=== PATIENT | female | born 1980 | race Caucasian/White ===

== ENCOUNTER 2019-01-25 10:21 | Outpatient (REF) | payer OTHER, SELFPAY | END 2019-01-25 10:41 | LOC: LBN 10:21 | PROVIDERS: PCP Internal Medicine; Visit Provider Nurse Practitioner | DX: R39.15 Urgency of urination (principal); R35.0 Frequency of micturition | CPT/HCPCS: 87086 ==

== ENCOUNTER 2019-07-21 22:19 | Observation (INO) | payer OTHER, SELFPAY ==
--- NOTE | 2019-07-21 00:12 | DI.CT_ITS ---
EXAM: CT ABDOMEN PELVIS W CLINICAL HISTORY: lower abdominal pain/RLQ tenderness COMPARISON: No exams were available for comparison FINDINGS: CT examination of the abdomen and pelvis was performed with a bolus infusion of 100 cc Omnipaque 350. Images obtained through the lung bases are unremarkable. There is a 14 millimeter in diameter, low -attenuation, mass-like lesion adjacent to the falciform ligament of the liver, probable focal fat. Ultrasound correlation and follow-up recommended to exclude mass. Tiny low-attenuation lesion also s een anteriorly at the dome of the liver, too small to characterize. Spleen is unremarkable. No bili shannan dilatation. Cholelithiasis noted without gallbladder wall thickening. Pancreas appears normal. Adrenals and kidneys are unremarkable except for multiple bilateral renal cysts, no evidence of urina ry tract calcification or obstruction. Hiatal hernia noted. No significant abdominal wall hernia. No abdominal or pelvic adenopathy. Abdominal aorta and major branches appear intact. There is markedly dilated appendix with thickened wall and multiple appendicoliths, periappendiceal f at edema and mild free fluid noted in the pelvis, the findings are highly suggestive of acute appendi citis. No evidence of perforation or abscess formation. Mild small bowel wall thickening noted in t he pelvis, nonspecific, presumably related to appendiceal inflammation. No evidence of bowel obstruc tion. Supplier Quality Manager structures unremarkable with presumed follicular appearance of the ovaries. IMPRESSION: 1. Acute appendicitis , no evidence of abscess or perforation. 2. Cholelithiasis. 3. Hiatal hernia.
[2019-07-21 22:23] VITALS: BP 117/72; PULSE 108; TEMP 36.9; O2SAT 100
--- NOTE | 2019-07-21 22:53 | ED.GENADUL_ITS ---
Discharge Plan Disposition Patient Disposition: [facility] INPATIENT Condition: Fair Discharge Details Chief Complaint: Abd Prob Clinical Impression: Acute appendicitis Primary Care Provider: Adelina Vasquez ED Provider: Mando Denis Home Meds and New Rx's Prescriptions: No Action Allergy Relief Tablets PO PRN RF: 0 albuterol sulfate [Proventil HFA] 90 mcg/actuation HFA aerosol inhaler 1 - 2 puff Inhalation Q4H PRN Qty: 1 RF: 2 multivitamin [Daily Multi-Vitamin] 1 EACH tablet 1 ea PO DAILY RF: 0 cholecalciferol (vitamin D3) 5,000 UNIT tablet 5,000 unit PO DAILY PRNRF: 0 Medical Decision Making Patient presenting with lower abdominal pain and vomiting that has been worsening over the course of 24 to 36 hours. She is mildly tachycardic but does not look toxic. She has significant tenderness with involuntary guarding in the right lower quadrant. IV established fluids, antiemetic, laboratory studies, CT scan ordered. Urine test is negative. Urinalysis with ketones, small blood, small bilirubin. No evidence of infection on micro. White count elevated to 14.3. Hemoglobin and platelets normal. Chemistries unremarkable. CT scan shows acute appendicitis with appendicolith at the base. No perforation or abscess present. Patient made n.p.o. Fluids continuing. Morphine for pain. Case discussed with surgeon, Dr. Samuels. Timoteo and Sincere ordered. Patient admitted for appendectomy in the morning. Patient and family aware of diagnosis and pending admission. Lab Data Lab results reviewed: Yes I reviewed the patient's lab results. HPI General Mode of arrival: ambulatory . Date/Time Provider Initiated Documentation: 07/21/19 22:19 . Limitations to Documentation: no limitations . Information obtained by: patient and RN notes reviewed . HPI Narrative: Patient presents to ED with complaint of worsening low abdominal pain with associated vomiting. Patient reports pain started yesterday while at work. It became progressively worse throughout the day. She began vomiting when she came home after work. She has continued to have worsening pain throughout the night and today. No fever that she is aware of. No diarrhea. Continues to occasionally be able to eat and drink something. No urinary symptoms. No URI symptoms, cough, shortness of breath. Related Data Home Medications Medication Instructions Recorded Confirmed multivitamin [Multi-Vitamin Daily] 1 ea PO DAILY tab 03/21/15 07/22/19 cholecalciferol (vitamin D3) 5,000 unit PO DAILY PRN 07/01/16 07/22/19 Allergy Relief Tablets PO PRN 03/23/18 01/25/19 albuterol sulfate 90 mcg/actuation 1 - 2 puff INHALATION Q4H PRN #1 03/23/18 07/22/19 aerosol inhaler inhaler Previous Rx's Medication Instructions Recorded albuterol sulfate 90 mcg/actuation 1 - 2 puff INHALATION Q4H PRN #1 03/23/18 aerosol inhaler inhaler Allergies Allergy/AdvReac Type Severity Reaction Status Date / Time amoxicillin trihydrate AdvReac Intermediate abdominal Verified 07/21/19 22:29 [From Augmentin] cramps ibuprofen AdvReac Intermediate intensse Verified 07/21/19 22:29 Intestinal Pain potassium clavulanate AdvReac Intermediate abdominal Verified 07/21/19 22:29 [From Augmentin] cramps seasonal Allergy Intermediate cold type Uncoded 07/21/19 22:29 s/s, stuffy head, itchy eyes General Stated Complaint: Abd Prob NOMAN: 3 Review of Systems Narrative: 02/14 Review of Systems completed and is negative except as stated above in HPI (Systems reviewed: Const, Eyes, ENT, Resp, CV, GI, , MSK, Skin, Neuro) PFSH Medical History Asthma (Chronic) Environmental allergies (Chronic) Surgical History S/P oophorectomy (Chronic) [place] teeth extraction (Inactive) Social History Smoking/Tobacco Use Status: Never Alcohol Intake: never Substance use type: does not use current occupation: Sales What type of physical activity do you participate in: walking and other Details: exercise ball Duration: 15-30 minutes/day Frequency: 3-4 times per week Seatbelt use: always Drive intox or ride w/intox hire car driver: No Working smoke detector in home: Yes Fire extinguisher in home: Yes Carbon monox detector in home: Yes Exam Narrative Exam Narrative: Vitals: Afebrile. Mild tachycardia. Normal blood pressure and room air saturation. Const: WDWN female in NAD. HEENT: NC/AT. Normal facial exam. Eyes: Normal conjunctiva and sclera. Neck: Supple. Trachea midline. Lungs: Normal respiratory effort. Lungs are clear. Cor: RRR without murmur/gallop. Good radial pulses. GI: Soft and non-distended. Tender with involuntary guarding in the RLQ. Pelvic: deferred. Neuro: A+O x 3. Normal speech, mentation, gait. Cranial nerves II - XII grossly intact. No gross motor or sensory deficit. Ext: No C/C/E. Skin: Warm and dry without rash. Course Vital Signs Vital signs: Vital Signs Temperature 98.5 F 07/21/19 22:23 Pulse 108 H 07/21/19 22:23 Blood Pressure 117/72 07/21/19 22:23 Pulse Oximetry 100 07/21/19 22:23 Temperature 98.5 F 07/21/19 22:23 Temperature Source Skin 07/21/19 22:23 Pulse 108 H 07/21/19 22:23 Respiratory Effort Non-Labored 07/21/19 22:29 Blood Pressure 117/72 07/21/19 22:23 Blood Pressure Position Supine 07/21/19 22:23 Pulse Oximetry 100 07/21/19 22:23 Oxygen Delivery Method Room Air 07/21/19 22:23 Oxygen Flow Rate 0 07/21/19 22:23 Pain Level 10 07/21/19 22:23
[2019-07-21] MEDS: Ondansetron 4 MG/2 ML VIAL IVP (23:42)
[2019-07-21] MEDS: Lactated Ringers 1,000 ML 1000 ML IV (23:42)
[2019-07-22] VITALS (16 sets, daily range): BP systolic 99–131; BP diastolic 55–82; PULSE 84–135; RESP 9–19; TEMP 36.3–39.4; O2SAT 95–100
[2019-07-22 00:01] LABS: Abs Immature Grans 0.05 k/cumm (0.0-0.09); Absolute Basophil Count 0.01 k/cumm (0.0-0.2); Absolute Monocyte Count 0.66 k/cumm (0.11-0.7); Absolute Neutrophil Count 12.99 k/cumm (1.2-6.7); Basophils % 0.1; HCT 43.1 % (36.0-46.0); HGB 14.4 g/dL (12.0-15.5); Immature Grans % 0.3 %; Lymphocytes % 4.2; Mean Corp. HGB Concentration 33.4 g/dL (32.0-36.0); Mean Corpuscular Volume 83.7 fL (80-95); Monocytes % 4.6; Neutrophils % 90.8; Platelet Count 354 x1000/uL (130-400); RBC 5.15 m/cumm (4.00-5.20); RBC Distribution Width 14.3 % (11.7-14.6); White Blood Cell Count 14.31 k/cumm (4.4-10.8)
[2019-07-22] MEDS: Normal Saline Flush 10 ML SYR IVP ×6 (00:07→20:57)
[2019-07-22] MEDS: Omnipaque 350 MG/ML 100 ML BTL IJ (00:08)
[2019-07-22] MEDS: Normal Saline - Diluent 50 ML VIAL IV (00:12)
[2019-07-22 00:15] LABS: ALT 42 U/L (14-59); AST 29 U/L (15-37); Albumin 3.7 g/dL (3.4-5.0); Alkaline Phosphatase 81 U/L (46-116); Anion Gap 11.4 mmol/L (3-11); BUN 7 mg/dL (7-18); Bilirubin, Total 1.4 mg/dL (0.2-1.0); CO2 25.6 mmol/L (21.0-32.0); CREATININE 1.02 mg/dL (0.55-1.02); Chloride 98 mmol/L (98-107); Glucose 163 mg/dL (74-106); Lipase 57 U/L (73-393); Potassium 3.8 mmol/L (3.5-5.1); Sodium 135 mmol/L (136-145); Total Protein 8.3 g/dL (6.4-8.2)
[2019-07-22 00:16] LABS: Bilirubin Small (Negative); Blood Small (Negative); Clarity Clear (Clear); Glucose Negative (Negative); Ketones 40 mg/dL (Negative); Leukocyte Esterase Negative (Negative); Nitrite Negative (Negative); Specific Gravity 1.025 (1.005-1.025); Urobilinogen 0.2 EU/dL (Up TO 0.2)
[2019-07-22 00:17] LABS: Bacteria Rare HPF (Negative); C & S Indicated? No; Casts Negative LPF (Negative); Crystals Negative HPF (Negative); Epithelial Cells Rare HPF (Negative); Mucus Negative (Negative); WBC 0-2 HPF (0-5)
--- NOTE | 2019-07-22 00:31 | DI.VRAD_ITS ---
PROCEDURE INFORMATION: Exam: CT Abdomen And Pelvis With Contrast Exam date and time: 07/21/2019 10:53 PM Age: 38 years old Clinical indication: Right lower quadrant (rlq) abd pain; Prior surgery; date: 6+ months; Oophorectomy TECHNIQUE: Imaging protocol: Computed tomography of the abdomen and pelvis with intravenous contrast. Radiation optimization: All CT scans at this facility use at least one of these dose optimization techniques: automated exposure control; mA and/or kV adjustment per patient size (includes targeted exams where dose is matched to clinical indication); or iterative reconstruction. Contrast material: EVFD325; Contrast volume: 100 ml; Contrast route: IV RAC 20G; COMPARISON: No relevant prior studies available. FINDINGS: Lungs: No acute infiltrate in either lung base. Mediastinum: Small hiatal hernia. Liver: Normal. No mass. Gallbladder and bile ducts: Cholelithiasis, otherwise normal gallbladder. No biliary tract dilatation. Pancreas: Normal. No ductal dilation. Spleen: Normal. No splenomegaly. Adrenals: Normal. No mass. Kidneys and ureters: Bilateral renal cortical cysts. No hydronephrosis. No perinephric fluid collections. Stomach and bowel: Unremarkable. No obstruction. No mucosal thickening. Appendix: 13-14 mm caliber, dilated, fluid-filled appendix with multiple internal appendicoliths, including 7 mm appendicolith in the appendiceal base. Small amount of free fluid in the pelvis. No associated abscess or perforation. Intraperitoneal space: Small amount of free fluid in the pelvis. Vasculature: Unremarkable. No abdominal aortic aneurysm. Lymph nodes: Unremarkable. No enlarged lymph nodes. Bladder: Unremarkable as visualized. Reproductive: 17 mm left ovarian simple cyst. Normal uterus. History of prior right oophorectomy. Bones/joints: Unremarkable. No acute fracture. Soft tissues: Unremarkable. IMPRESSION: 1. ACUTE APPENDICITIS: 13-14 mm caliber, dilated, fluid-filled appendix with multiple internal appendicoliths, including 7 mm appendicolith in the appendiceal base. Small amount of free fluid in the pelvis. No associated abscess or perforation. 2. Cholelithiasis, otherwise normal gallbladder. 3. 17 mm left ovarian simple cyst. 4. Small hiatal hernia. 5. THIS REPORT CONTAINS FINDINGS THAT MAY BE CRITICAL TO PATIENT CARE. The findings were verbally communicated via telephone conference with MIRA CARUSO at 12:23 AM EDT on 07/22/2019. The findings were acknowledged and understood. Dictated and Authenticated by: Wing Herrera MD. Ordering:JOHN Gilmore MD
[2019-07-22] MEDS: CIPROFLOXACIN 400 MG/200 ML BAG 200 MG IVPB (01:02)
[2019-07-22] MEDS: Lactated Ringers 1,000 ML 125 ML IV ×4 (03:37→18:33)
[2019-07-22] MEDS: Acetaminophen 325 MG TAB 650 MG PO ×2 (04:03→20:55)
[2019-07-22] MEDS: Ketorolac 30 MG/ML VIAL IVP ×2 (04:04→20:57)
[2019-07-22] MEDS: metroNIDAZOLE 500 MG/100 ML BAG 100 MG IVPB ×2 (07:39→16:23)
--- NOTE | 2019-07-22 09:47 | W.PM.HP.N ---
Date of service: 07/22/19 Time of Service: 09:54 Assessment and Plan Assessment and plan (1) Acute appendicitis: Status: Acute Assessment and plan: I advised appendectomy. We are treating every patient as a potential carrier of coronavirus. To avoid manipulating the airway, she is advised to have the procedure done as an open appendectomy under spinal/sedation. This will also minimize the risk of exacerbating her asthma. The surgery was described including the risks of infection, bleeding, injury to bowel, abscess, hernia. Postop instructions were also discussed with the patient in anticipation of discharge today. History of Present Illness Narrative: This patient presented to the ER last night with abdominal pain, N/V for about 24 hours. She also notes some constipation. CT reviewed and shows acute appendicitis with a fecalith present. No obvious perforation. She has no cough or SOB. Rarely uses her inhaler. No recent travel. Works in an office. Review of Systems Constitutional Constitutional: Denies fatigue and Denies headache(s) Eyes Eyes: Denies change in vision ENT Ears, Nose, Mouth, and Throat: Denies headache(s) and Denies neck mass Cardiovascular Cardiovascular: Denies chest pain, Denies edema, Denies palpitations and Denies dyspnea Respiratory Respiratory: Denies cough, Denies dyspnea and Denies wheezing Gastrointestinal Gastrointestinal: Denies hematochezia and Denies change in bowel habits Genitourinary Genitourinary: Denies abnormal vaginal bleeding and Denies dysuria Musculoskeletal Musculoskeletal: Denies joint swelling Integumentary/Breasts Skin/Breast: Denies new lesions and Denies rash Neurologic Neurologic: Denies confusion, Denies headache(s) and Denies localized weakness Psychiatric Psychiatric: Reports system reviewed and no additional complaints, except as documented and Denies confusion Endocrine Endocrine: Denies fatigue and Denies palpitations Hematologic/Lymphatic Hematologic/Lymphatic: Denies easy bleeding and Denies lymphadenopathy Allergic/Immunologic Allergic/Immunologic: Denies wheezing [facility] Medical History Asthma (Chronic) Environmental allergies (Chronic) Surgical History S/P oophorectomy (Chronic) with bilateral salpingectomy [place] teeth extraction (Inactive) Family History Mother No problems noted. Father No problems noted. Grandfather Cancer Kidney CA Grandmother Cancer Not sure type ?stomach Grandmother Ovarian cancer Or endometrial CA? Diabetes maternal grandmother Essential hypertension maternal grandmother Heart disease Myocardial infarction Great Grandmother , Heart issues Cancer Breast CA Other Personal history of malignant neoplasm Social History Smoking/Tobacco Use Status: Never Alcohol Intake: never Substance use type: does not use current occupation: Sales What type of physical activity do you participate in: walking and other Details: exercise ball Duration: 15-30 minutes/day Frequency: 3-4 times per week Seatbelt use: always Drive intox or ride w/intox distribution driver: No Working smoke detector in home: Yes Fire extinguisher in home: Yes Carbon monox detector in home: Yes Meds Home Medications and Allergies Home Medications Medication Instructions Recorded Confirmed Type multivitamin [Multi-Vitamin Daily] 1 ea PO DAILY tab 03/21/15 07/22/19 History cholecalciferol (vitamin D3) 5,000 unit PO DAILY PRN 07/01/16 07/22/19 History Allergy Relief Tablets PO PRN 03/23/18 01/25/19 History albuterol sulfate 90 mcg/actuation 1 - 2 puff INHALATION Q4H PRN #1 03/23/18 07/22/19 Rx aerosol inhaler inhaler Allergies Allergy/AdvReac Type Severity Reaction Status Date / Time amoxicillin trihydrate AdvReac Intermediate abdominal Verified 07/21/19 22:29 [From Augmentin] cramps ibuprofen AdvReac Intermediate intensse Verified 07/21/19 22:29 Intestinal Pain potassium clavulanate AdvReac Intermediate abdominal Verified 07/21/19 22:29 [From Augmentin] cramps seasonal Allergy Intermediate cold type Uncoded 07/21/19 22:29 s/s, stuffy head, itchy eyes Exam Const General: healthy appearing Nutritional Appearance: well nourished Orientation: oriented x3 HENMT Head: normal to inspection Eyes Sclera: sclerae normal Pupils: PERRL Neck Neck: no lymphadenopathy Resp Effort & Inspection: normal respiratory effort Auscultation: clear to auscultation bilaterally and no wheezes Cardio Rate: regular rate Rhythm: regular rhythm GI Inspection: non-distended Palpation: soft, no hepatosplenomegaly, no hernias and tender in the RLQ Skin General skin exam: no rashes or lesions noted Neuro General: patient alert Cognition: normal cognition Extrem General: normal to inspection Psych Affect: normal affect Attitude: cooperative Results Labs Result diagrams: 07/21/19 23:42 07/21/19 23:42 Labs: Laboratory Results - last 24 hr 07/21/19 07/21/19 07/22/19 23:42 23:42 00:00 WBC 14.31 H RBC 5.15 Hgb 14.4 Hct 43.1 MCV 83.7 MCH 28.0 MCHC 33.4 RDW 14.3 Plt Count 354 MPV 9.0 Immature Gran % 0.3 Neutrophils % 90.8 Lymphocytes % 4.2 Monocytes % 4.6 Eosinophils % 0.0 Basophils % 0.1 Absolute Neutrophils 12.99 H Absolute Lymphocytes 0.60 L Absolute Monocytes 0.66 Absolute Eosinophils 0.00 Absolute Basophils 0.01 Sodium 135 L Potassium 3.8 Chloride 98 Carbon Dioxide 25.6 Anion Gap 11.4 H BUN 7 Creatinine 1.02 Estimated GFR/1.73 m2 >= 60.00 Glucose 163 H Calcium 9.0 Total Bilirubin 1.4 H AST 29 ALT 42 Alkaline Phosphatase 81 Total Protein 8.3 H Albumin 3.7 Lipase 57 Urine Color Yellow Urine Clarity Clear Urine pH 6.0 Ur Specific [place] 1.025 Urine Protein 100 H Urine Ketones 40 H Urine Blood Small H Urine Nitrite Negative Urine Bilirubin Small H Urine Urobilinogen 0.2 Ur Leukocyte Esterase Negative Urine RBC 3-5 H Urine WBC 0-2 Ur Epithelial Cells Rare Urine Crystals Negative Urine Bacteria Rare Urine Casts Negative Urine Mucus Negative Ur Culture Indicated? No Urine Glucose Negative Last Vital Signs Temp 100.2 F H 07/22/19 07:49 Pulse 115 H 07/22/19 07:49 Resp 16 07/22/19 07:49 BP 103/59 L 07/22/19 07:49 Pulse Ox 96 07/22/19 07:49
--- NOTE | 2019-07-22 09:58 | W.PM.DS.N ---
DS: Diagnosis Discharge Diagnosis (1) Acute appendicitis: Status: Acute Discharge Plan Disposition Patient Disposition: HOME Condition: Improving Discharge Details Chief Complaint: Abd Prob Clinical Impression: Acute appendicitis Reason For Visit: ACUTE APPENDICITIS Admit Date/Time: 07/22/19 00:48 Admit Provider: Julia Samuels Attending Provider: Julia Samuels Primary Care Provider: Adelina Vasquez ED Provider: Mando Denis Home Meds and New Rx's Prescriptions: Continued Allergy Relief Tablets PO PRN RF: 0 albuterol sulfate [Proventil HFA] 90 mcg/actuation HFA aerosol inhaler 1 - 2 puff Inhalation Q4H PRN Qty: 1 RF: 2 multivitamin [Daily Multi-Vitamin] 1 EACH tablet 1 ea PO DAILY RF: 0 cholecalciferol (vitamin D3) 5,000 UNIT tablet 5,000 unit PO DAILY PRNRF: 0 Discharge Instructions Additional Instructions: The top bandage can be removed tomorrow or the next day. The steri strips underneath the bandage will usually stick for about a week. When the edges start to curl up, they can be removed. It is okay to shower tomorrow, the water can run over the steri strips Do not swim or soak in a tub for two weeks Call for any concerns including fever, increased pain, vomiting, incision redness or drainage. Do not lift more than 15 pounds for four weeks. Walking and stairs are fine. Do not drive if on narcotic pain meds or if limited by pain. May use Tylenol for pain control once the Percocet is not being taken. Ice is also an option. The maximum dose for Tylenol is 4000 mg/day. If concerned about constipation, you may use a stool softener or milk of magnesia. Referrals: Julia Samuels MD [ [facility] STAFF PHYSICIAN] - (Return for a postop visit as needed. Please call with any concerns or if you need a note for work.) Activity:: Do not lift more than 15 pounds Equipment/Supplies:: No Equipment Needed Diet:: As Tolerated DS: Data Vitals/I&O Vitals and I&O: Vital Signs Temperature 100.2 F H 07/22/19 07:49 Temperature Source Temporal Artery Scan 07/22/19 07:49 Pulse 115 H 07/22/19 07:49 Pulse Rhythm Regular 07/22/19 01:42 Respiratory Rate 16 07/22/19 07:49 Respiratory Effort Non-Labored 07/22/19 01:42 Respiratory Depth Normal 07/22/19 01:42 Respiratory Pattern Normal 07/22/19 01:42 Blood Pressure 103/59 L 07/22/19 07:49 Blood Pressure Position Supine 07/21/19 22:23 Pulse Oximetry 96 07/22/19 07:49 Oxygen Delivery Method Room Air 07/22/19 07:49 Oxygen Flow Rate 0 07/22/19 07:49 Pain Level 5 07/22/19 07:49 Intake & Output 07/21/19 07/21/19 07/22/19 11:59 23:59 11:59 Intake Total 418.75 / 418.75 Output Total 475 / 475 Balance -56.25 / -56.25 Weight 165 lb 0.009 oz 168 lb 10.458 oz Intake: IV 418.75 / 418.75 Output: Urine 475 / 475 Other: Urine Color Light Lisha [place] Urine Appearance Clear Urine Odor Normal Voiding Methods Toilet Data Completed and Pending Labs on day of discharge: Labs from last 24 hours 07/22/19 07/21/19 07/21/19 00:00 23:42 23:42 WBC 14.31 H RBC 5.15 Hgb 14.4 Hct 43.1 MCV 83.7 MCH 28.0 MCHC 33.4 RDW 14.3 Plt Count 354 MPV 9.0 Immature Gran % 0.3 Neutrophils % 90.8 Lymphocytes % 4.2 Monocytes % 4.6 Eosinophils % 0.0 Basophils % 0.1 Absolute Neutrophils 12.99 H Absolute Lymphocytes 0.60 L Absolute Monocytes 0.66 Absolute Eosinophils 0.00 Absolute Basophils 0.01 Sodium 135 L Potassium 3.8 Chloride 98 Carbon Dioxide 25.6 Anion Gap 11.4 H BUN 7 Creatinine 1.02 Estimated GFR/1.73 m2 >= 60.00 Glucose 163 H Calcium 9.0 Total Bilirubin 1.4 H AST 29 ALT 42 Alkaline Phosphatase 81 Total Protein 8.3 H Albumin 3.7 Lipase 57 Urine Color Yellow Urine Clarity Clear Urine pH 6.0 Ur Specific [place] 1.025 Urine Protein 100 H Urine Ketones 40 H Urine Blood Small H Urine Nitrite Negative Urine Bilirubin Small H Urine Urobilinogen 0.2 Ur Leukocyte Esterase Negative Urine RBC 3-5 H Urine WBC 0-2 Ur Epithelial Cells Rare Urine Crystals Negative Urine Bacteria Rare Urine Casts Negative Urine Mucus Negative Ur Culture Indicated? No Urine Glucose Negative PFSH Medical History Asthma (Chronic) Environmental allergies (Chronic) Surgical History S/P oophorectomy (Chronic) with bilateral salpingectomy [place] teeth extraction (Inactive) Family History Mother No problems noted. Father No problems noted. Grandfather Cancer Kidney CA Grandmother Cancer Not sure type ?stomach Grandmother Ovarian cancer Or endometrial CA? Diabetes maternal grandmother Essential hypertension maternal grandmother Heart disease Myocardial infarction Great Grandmother , Heart issues Cancer Breast CA Other Personal history of malignant neoplasm Social History Smoking/Tobacco Use Status: Never Alcohol Intake: never Substance use type: does not use current occupation: Sales What type of physical activity do you participate in: walking and other Details: exercise ball Duration: 15-30 minutes/day Frequency: 3-4 times per week Seatbelt use: always Drive intox or ride w/intox hyster driver: No Working smoke detector in home: Yes Fire extinguisher in home: Yes Carbon monox detector in home: Yes
[2019-07-22] MEDS: Bupivacaine 0.5% Pres-Free 30 ML VIAL (10:57)
[2019-07-22] MEDS: CIPROFLOXACIN 400 MG/200 ML BAG 200 MG (11:24)
--- NOTE | 2019-07-22 11:42 | APP_PTH ---
PATIENT: Hilda Bliss LOC: U#:[id number] AGE/SX: 38/F ROOM: RE07/22/[address]: Julia Samuels MD : 1980 BED: A DIS: 07/24/2019 SPEC #: [id number] RECD: 07/22/19 12:46 STATUS: ALMAZ REQ #: [id number] SHIREEN: 07/22/19 11:[address]: Julia Samuels DEPT: Surgical Specimen RECD BY: Ana Maria Corbett ENTERED: 07/22/19 12:49 SP TYPE: Appendix OTHR DR: Adelina Vasquez APRN Tissues: 1 - APPENDIX NOT INCIDENTAL Procedures: GROSS AND MICRO LEVEL 3 Comments: [id number]
--- NOTE | 2019-07-22 12:24 | W.PM.PROGNOT ---
Date of Service Date of service: 07/22/19 Time of Service: 12:25 Assessment and Plan Assessment and plan (1) Perforated appendicitis: Status: Acute Assessment and plan: Patient found to have perforated appendicitis. Will keep in hospital on IV antibiotics for another day and re-evaluate Signed out to Dr. Singh for the weekend. Objective Objective Clinical Data: Abnormal lab results 07/21/19 07/21/19 07/22/19 Range/Units 23:42 23:42 00:00 WBC 14.31 H (4.4-10.8) k/cumm Absolute Neutrophils 12.99 H (1.2-6.7) k/cumm Absolute Lymphocytes 0.60 L (1.2-3.4) k/cumm Sodium 135 L (136-145) mmol/L Anion Gap 11.4 H (3-11) mmol/L Glucose 163 H (74-106) mg/dL Total Bilirubin 1.4 H (0.2-1.0) mg/dL Total Protein 8.3 H (6.4-8.2) g/dL Urine Protein 100 H (Negative) mg/dL Urine Ketones 40 H (Negative) mg/dL Urine Blood Small H (Negative) Urine Bilirubin Small H (Negative) Urine RBC 3-5 H (0-2) HPF Vital Signs Temperature 100.2 F H 07/22/19 07:49 Temperature Source Temporal Artery Scan 07/22/19 07:49 Pulse 115 H 07/22/19 07:49 Pulse Rhythm Regular 07/22/19 01:42 Respiratory Rate 16 07/22/19 07:49 Respiratory Effort Non-Labored 07/22/19 01:42 Respiratory Depth Normal 07/22/19 01:42 Respiratory Pattern Normal 07/22/19 01:42 Blood Pressure 103/59 L 07/22/19 07:49 Blood Pressure Position Supine 07/21/19 22:23 Pulse Oximetry 96 07/22/19 07:49 Oxygen Delivery Method Room Air 07/22/19 07:49 Oxygen Flow Rate 0 07/22/19 07:49 Pain Level 5 07/22/19 07:49 Intake & Output 07/21/19 07/22/19 07/22/19 23:59 11:59 23:59 Intake Total 1418.75 / 1718.75 300 / 1718.75 Output Total 475 / 475 Balance 943.75 / 1243.75 300 / 1243.75 Weight 165 lb 0.009 oz 168 lb 10.458 oz Intake: IV 1418.75 / 1718.75 300 / 1718.75 Output: Urine 475 / 475 Other: Urine Color Light Lisha [place] Urine Appearance Clear Urine Odor Normal Voiding Methods Toilet Laboratory Results WBC 14.31 k/cumm (4.4-10.8) H 07/21/19 23:42 RBC 5.15 m/cumm (4.00-5.20) 07/21/19 23:42 Hgb 14.4 g/dL (12.0-15.5) 07/21/19 23:42 Hct 43.1 % (36.0-46.0) 07/21/19 23:42 MCV 83.7 fL (80-95) 07/21/19 23:42 MCH 28.0 pg (27.0-33.0) 07/21/19 23:42 MCHC 33.4 g/dL (32.0-36.0) 07/21/19 23:42 RDW 14.3 % (11.7-14.6) 07/21/19 23:42 Plt Count 354 x1000/uL (130-400) 07/21/19 23:42 MPV 9.0 fL (8.0-11.0) 07/21/19 23:42 Immature Gran % 0.3 % 07/21/19 23:42 Neutrophils % 90.8 07/21/19 23:42 Lymphocytes % 4.2 07/21/19 23:42 Monocytes % 4.6 07/21/19 23:42 Eosinophils % 0.0 07/21/19 23:42 Basophils % 0.1 07/21/19 23:42 Absolute Neutrophils 12.99 k/cumm (1.2-6.7) H 07/21/19 23:42 Absolute Lymphocytes 0.60 k/cumm (1.2-3.4) L 07/21/19 23:42 Absolute Monocytes 0.66 k/cumm (0.11-0.7) 07/21/19 23:42 Absolute Eosinophils 0.00 k/cumm (0.0-0.7) 07/21/19 23:42 Absolute Basophils 0.01 k/cumm (0.0-0.2) 07/21/19 23:42 Sodium 135 mmol/L (136-145) L 07/21/19 23:42 Potassium 3.8 mmol/L (3.5-5.1) 07/21/19 23:42 Chloride 98 mmol/L (98-107) 07/21/19 23:42 Carbon Dioxide 25.6 mmol/L (21.0-32.0) 07/21/19 23:42 Anion Gap 11.4 mmol/L (3-11) H 07/21/19 23:42 BUN 7 mg/dL (7-18) 07/21/19 23:42 Creatinine 1.02 mg/dL (0.55-1.02) 07/21/19 23:42 Estimated GFR/1.73 m2 >= 60.00 (mL/min/1.73m2) 07/21/19 23:42 Glucose 163 mg/dL (74-106) H 07/21/19 23:42 Calcium 9.0 mg/dL (8.5-10.1) 07/21/19 23:42 Total Bilirubin 1.4 mg/dL (0.2-1.0) H 07/21/19 23:42 AST 29 U/L (15-37) 07/21/19 23:42 ALT 42 U/L (14-59) 07/21/19 23:42 Alkaline Phosphatase 81 U/L (46-116) 07/21/19 23:42 Total Protein 8.3 g/dL (6.4-8.2) H 07/21/19 23:42 Albumin 3.7 g/dL (3.4-5.0) 07/21/19 23:42 Lipase 57 U/L (73-393) 07/21/19 23:42 Urine Color Yellow (Yellow) 07/22/19 00:00 Urine Clarity Clear (Clear) 07/22/19 00:00 Urine pH 6.0 (5-8) 07/22/19 00:00 Ur Specific [place] 1.025 (1.005-1.025) 07/22/19 00:00 Urine Protein 100 mg/dL (Negative) H 07/22/19 00:00 Urine Ketones 40 mg/dL (Negative) H 07/22/19 00:00 Urine Blood Small (Negative) H 07/22/19 00:00 Urine Nitrite Negative (Negative) 07/22/19 00:00 Urine Bilirubin Small (Negative) H 07/22/19 00:00 Urine Urobilinogen 0.2 EU/dL (Up TO 0.2) 07/22/19 00:00 Ur Leukocyte Esterase Negative (Negative) 07/22/19 00:00 Urine RBC 3-5 HPF (0-2) H 07/22/19 00:00 Urine WBC 0-2 HPF (0-5) 07/22/19 00:00 Ur Epithelial Cells Rare HPF (Negative) 07/22/19 00:00 Urine Crystals Negative HPF (Negative) 07/22/19 00:00 Urine Bacteria Rare HPF (Negative) 07/22/19 00:00 Urine Casts Negative LPF (Negative) 07/22/19 00:00 Urine Mucus Negative (Negative) 07/22/19 00:00 Ur Culture Indicated? No 07/22/19 00:00 Urine Glucose Negative mg/dL (Negative) 07/22/19 00:00
--- NOTE | 2019-07-22 13:30 | W.NUTCONSULT ---
Date of service: 07/22/19 Time of Service: 13:30 Nutritional Consult ASSESSMENT: 38 year old female with performated appendicitis, s/p surgery. Now on surgical soft diet with 100% completion. BMI indicates obesity. Does not appear at nutritional risk at this time. MONITORING AND EVALUATION: weight, po intake, labs Time Spent in Nutritional Counseling and Treatment: 0 time spent face to face
--- NOTE | 2019-07-22 15:11 | PDOC.CMIN ---
- If Service Date Differs Date of service: 07/22/19 Time of Service: 15:11 Care Management Initial Assess REASON FOR HOSPITALIZATION:: Acute Appendicitis PAST MEDICAL HISTORY/PAST SURGICAL HISTORY:: Medical History . Asthma (Chronic). Environmental allergies (Chronic). Surgical History . S/P oophorectomy (Chronic). with bilateral salpingectomy. [place] teeth extraction (Inactive) PREVIOUS FUNCTIONAL STATUS/SOCIAL/FAMILY SUPPORTS:: Hilda lives in [place], [place]. She currently works in customer service. She is independent at baseline. CURRENT FUNCTIONAL STATUS:: Hilda was lying in bed when CM met with her. She stated that she had just returned to her room post surgically. She reported that she was feeling woozy, which was apparent in conversation, as she appeared to have difficulty keeping her eyes open. CM discussed her concerns regarding her insurance having a prior authorization for her surgery. CM verified that her insurance was informed of this hospital stay with a pre auth in place. CM will continue to follow. ADVANCE DIRECTIVES:: None on file. Has patient been provided with information about the portal?: Yes Did the patient sign up for the portal?: Yes (previously signed up) CODE STATUS:: Full Code INSURANCE COVERAGE / FINANCIAL ISSUES:: [employer]/Self Pay CURRENT HOME/COMMUNITY SERVICES/EQUIPMENT:: Hilda does not currently have equipment or services in the community. PRIMARY CARE PHYSICIAN:: Adelina Vasquez POTENTIAL DISCHARGE NEEDS:: Evaluations for further needs, follow up appointments PATIENT/FAMILY EDUCATION NEEDS:: Review discharge instructions regarding activity levels and medications, discussion of self care needs including ask me three ANTICIPATED BARRIERS TO DISCHARGE:: None identified. TRANSPORTATION:: Anticipate Hilda will be driven home private vehicle by family/friends. PLAN:: Anticipate Hilda will return home when medically cleared with no anticipated services. She will follow up with her PCP, as recommended. Her family will drive her home when ready. CM will continue to follow.
--- NOTE | 2019-07-22 15:22 | PHA.ADMREV ---
Pharmacy Clinical Review - Admission Clinical Review (Last Reviewed 07/22/19 @ 09:58 by Julia Samuels MD) Perforated appendicitis (Acute) Acute appendicitis (Acute) amoxicillin trihydrate [From Augmentin] Adverse Reaction (Intermediate, Verified 07/21/19 22:29) abdominal cramps ibuprofen Adverse Reaction (Intermediate, Verified 07/21/19 22:29) intensse Intestinal Pain potassium clavulanate [From Augmentin] Adverse Reaction (Intermediate, Verified 07/21/19 22:29) abdominal cramps seasonal Allergy (Intermediate, Uncoded 07/21/19 22:29) cold type s/s, stuffy head, itchy eyes Height 5 ft 1 in Weight 76.5 kg - Renal Dosing Renal Dosing: BUN 7 mg/dL (7-18) 07/21/19 23:42 Creatinine 1.02 mg/dL (0.55-1.02) 07/21/19 23:42 Medications needing adjustments: Reviewed (Crcl ~68.6 mL/min using adjusted body weight. Current meds okay) - Anticoagulation Anticoagulation: Hgb 14.4 g/dL (12.0-15.5) 07/21/19 23:42 Hct 43.1 % (36.0-46.0) 07/21/19 23:42 Plt Count 354 x1000/uL (130-400) 07/21/19 23:42 Creatinine 1.02 mg/dL (0.55-1.02) 07/21/19 23:42 DVT Prohphylaxis: N/A Therapeutic Anticoagulation: N/A - Opiate Usage Evaluate Pain Scale/Pains Meds: Reviewed Scheduled Bowel Reg ordered if on Opiates?: No - Relevant Labs Sodium 135 mmol/L (136-145) L 07/21/19 23:42 Potassium 3.8 mmol/L (3.5-5.1) 07/21/19 23:42 Chloride 98 mmol/L (98-107) 07/21/19 23:42 Electrolytes, C-Reactive P, ESR: Reviewed - Antimicrobial Stewardship Antibiotic appropriateness: Reviewed Surgical Abx d/c within 24 hr: N/A Culture review/Resistance: N/A - DM Control DM Control: Glucose 163 mg/dL (74-106) H 07/21/19 23:42 Insulin Dosing: N/A - Heart Failure/MD EF%, ARLETTE's, B-Blockers, Diuretics: N/A - BP Control BP Control: Blood Pressure 128/77 Blood Pressure 120/68 Blood Pressure 127/77 Blood Pressure 121/70 Blood Pressure 99/64 If elevated: N/A - QTc Review If Elevated: N/A - IV to PO Switch IV Medications: N/A - Home Meds Home Med List reviewed: Reviewed (cetirizine, cholecalciferol, multivitamin) - Current meds Current Medication Order Review: Reviewed - Comments Comments/Follow Ups: Watch for restart of home meds and the addition of BM meds if needed.
[2019-07-22] MEDS: Ondansetron 4 MG/2 ML VIAL IVP (20:56)
[2019-07-23] MEDS: metroNIDAZOLE 500 MG/100 ML BAG 100 MG IVPB ×3 (00:18→16:11)
[2019-07-23] MEDS: oxyCODONE 5 mg/Acetaminophen 325 mg TAB PO (00:46)
[2019-07-23] MEDS: CIPROFLOXACIN 400 MG/200 ML BAG 200 MG IVPB ×2 (01:29→12:46)
[2019-07-23 03:55] VITALS: BP 103/61; PULSE 92; RESP 17; TEMP 36.8; O2SAT 95
[2019-07-23 07:03] LABS: Abs Immature Grans 0.06 k/cumm (0.0-0.09); HCT 33.6 % (36.0-46.0); HGB 10.9 g/dL (12.0-15.5); Mean Corp. HGB Concentration 32.4 g/dL (32.0-36.0); Mean Corpuscular Hemoglobin 27.7 pg (27.0-33.0); Mean Corpuscular Volume 85.5 fL (80-95); Mean Platelet Volume 9.3 fL (8.0-11.0); Platelet Count 237 x1000/uL (130-400); RBC 3.93 m/cumm (4.00-5.20); White Blood Cell Count 12.08 k/cumm (4.4-10.8)
[2019-07-23 07:33] LABS: Absolute Eosinophil Count 0.12 k/cumm (0.0-0.7); Absolute Lymphocyte Count 0.72 k/cumm (1.2-3.4); Absolute Neutrophil Count 10.63 k/cumm (1.2-6.7); Diff Comment Manual Differential; Polychromasia Present
[2019-07-23 07:50] VITALS: BP 116/72; PULSE 90; RESP 18; TEMP 37; O2SAT 100
[2019-07-23] MEDS: Acetaminophen 325 MG TAB 650 MG PO (08:08)
[2019-07-23] MEDS: Normal Saline Flush 10 ML SYR IVP ×2 (09:06→12:47)
[2019-07-23 11:10] VITALS: BP 109/69; PULSE 104; RESP 18; TEMP 37.1; O2SAT 98
[2019-07-23] MEDS: Ketorolac 30 MG/ML VIAL IVP ×2 (12:46→19:53)
--- NOTE | 2019-07-23 13:27 | PGE_ITS ---
Date of Service Date of service: 07/23/19 Time of Service: 13:28 Assessment and Plan Assessment and plan (1) Perforated appendicitis: Status: Acute Assessment and plan: cont IV abx -supportive care -probiotics -shower -pain management -Needs to have BM -walk -monitor for SBO (2) Asthma: Status: Chronic (3) Environmental allergies: Status: Chronic (4) Mild intermittent asthma without complication: Status: Acute (5) Hyperlipidemia, unspecified: Status: Acute (6) Allergic rhinitis, unspecified: Status: Acute Subjective Subjective Interval history since last seen: Pt is doing OK no headaches. No CP or SOB. no productive cough. no dysuria. no leg pain or swelling. She denies fever/chills. She says she is not passing gas. She denies N/V. Exam Const General: cooperative, healthy appearing, comfortable, no acute distress, well developed and well groomed Nutritional Appearance: average body habitus and well nourished Orientation: alert, awake and oriented x3 HENMT Head: normal to inspection, normocephalic and atraumatic Ears: hearing grossly normal bilaterally and external ears normal General nose exam: external nose normal Face and sinus: normal facial exam and sinuses nontender Mouth: oral mucosae normal, lip normal, tongue normal and moist mucous membranes Teeth and gingiva: dentition normal Eyes General: appearance normal, both eyes and all related structures Conjunctivae: conjunctivae normal Sclera: sclerae normal Pupils: PERRL Neck Neck: normal visual inspection and full ROM Chest Chest: normal inspection of the chest Resp Effort & Inspection: normal respiratory effort, able to speak in complete sentences, no cough, no nasal flaring, not tachypneic and no use of accessory muscles Auscultation: clear to auscultation bilaterally, no rales, no rhonchi and no wheezes Cardio Jugular venous pressure: no JVD Rate: regular rate Rhythm: regular rhythm GI Inspection: normal to inspection, no edema and distended Palpation: soft, no masses, tender (incision is c/d/i) in the RLQ and No ascites Auscultation: hypoactive bowel sounds Skin General skin exam: no rashes or lesions noted Trauma: no lacerations or abrasions Neuro General: patient alert, patient oriented x3, oriented, gait normal, moves all extremities, no focal motor deficits and CN's II-XI intact bilaterally Cognition: normal cognition Speech: speech normal Gait: normal gait Motor: muscle tone normal throughout Extrem General: normal to inspection, full ROM and no clubbing, cyanosis or edema Psych Appearance: grossly normal and well kempt Mental Status: mental status grossly normal Speech and Movement: other (flat affect) Affect: blunted Objective Objective Clinical Data: Abnormal lab results 07/23/19 Range/Units 06:40 WBC 12.08 H (4.4-10.8) k/cumm RBC 3.93 L (4.00-5.20) m/cumm Hgb 10.9 L D (12.0-15.5) g/dL Hct 33.6 L D (36.0-46.0) % Absolute Neutrophils 10.63 H (1.2-6.7) k/cumm Absolute Lymphocytes 0.72 L (1.2-3.4) k/cumm Vital Signs Temperature 37.0 C 07/23/19 07:50 Temperature Source Tympanic 07/23/19 07:50 Pulse 90 07/23/19 07:50 Pulse Rhythm Regular 07/23/19 07:30 Respiratory Rate 18 07/23/19 07:50 Respiratory Effort 07/23/19 07:30 Respiratory Depth Normal 07/23/19 07:30 Respiratory Pattern Normal 07/23/19 07:30 Blood Pressure 116/72 07/23/19 07:50 Blood Pressure Position Supine 07/21/19 22:23 Pulse Oximetry 100 07/23/19 07:50 Oxygen Delivery Method Room Air 07/23/19 07:50 Oxygen Flow Rate 0 07/23/19 07:50 Pain Level 4 07/23/19 12:46 Intake & Output 07/22/19 07/23/19 07/23/19 23:59 11:59 23:59 Intake Total 1340 / 2858.75 300 / 300 Output Total 300 / 1325 1050 / 1050 Balance 1040 / 1533.75 -750 / -750 Intake: IV 1100 / 2618.75 300 / 300 Oral 240 / 240 Output: Urine 300 / 1325 1050 / 1050 Other: Urine Color Dark Lisha Yellow Urine Appearance Clear Clear Urine Odor None None Emesis Description None Voiding Methods Toilet Toilet Laboratory Results WBC 12.08 k/cumm (4.4-10.8) H 07/23/19 06:40 RBC 3.93 m/cumm (4.00-5.20) L 07/23/19 06:40 Hgb 10.9 g/dL (12.0-15.5) L D 07/23/19 06:40 Hct 33.6 % (36.0-46.0) L D 07/23/19 06:40 MCV 85.5 fL (80-95) 07/23/19 06:40 MCH 27.7 pg (27.0-33.0) 07/23/19 06:40 MCHC 32.4 g/dL (32.0-36.0) 07/23/19 06:40 RDW 14.0 % (11.7-14.6) 07/23/19 06:40 Plt Count 237 x1000/uL (130-400) D 07/23/19 06:40 MPV 9.3 fL (8.0-11.0) 07/23/19 06:40 Immature Gran % 0.0 % 07/23/19 06:40 Neutrophils % 81.0 07/23/19 06:40 Band Neutrophils % 7.0 % 07/23/19 06:40 Lymphocytes % 6.0 07/23/19 06:40 Monocytes % 5.0 07/23/19 06:40 Eosinophils % 1.0 07/23/19 06:40 Basophils % 0.0 07/23/19 06:40 Absolute Neutrophils 10.63 k/cumm (1.2-6.7) H 07/23/19 06:40 Absolute Lymphocytes 0.72 k/cumm (1.2-3.4) L 07/23/19 06:40 Absolute Monocytes 0.60 k/cumm (0.11-0.7) 07/23/19 06:40 Absolute Eosinophils 0.12 k/cumm (0.0-0.7) 07/23/19 06:40 Absolute Basophils 0.00 k/cumm (0.0-0.2) 07/23/19 06:40 Differential Comment Manual differential 07/23/19 06:40 RBC Morphology See below 07/23/19 06:40 Polychromasia Present 07/23/19 06:40 Sodium 135 mmol/L (136-145) L 07/21/19 23:42 Potassium 3.8 mmol/L (3.5-5.1) 07/21/19 23:42 Chloride 98 mmol/L (98-107) 07/21/19 23:42 Carbon Dioxide 25.6 mmol/L (21.0-32.0) 07/21/19 23:42 Anion Gap 11.4 mmol/L (3-11) H 07/21/19 23:42 BUN 7 mg/dL (7-18) 07/21/19 23:42 Creatinine 1.02 mg/dL (0.55-1.02) 07/21/19 23:42 Estimated GFR/1.73 m2 >= 60.00 (mL/min/1.73m2) 07/21/19 23:42 Glucose 163 mg/dL (74-106) H 07/21/19 23:42 Calcium 9.0 mg/dL (8.5-10.1) 07/21/19 23:42 Total Bilirubin 1.4 mg/dL (0.2-1.0) H 07/21/19 23:42 AST 29 U/L (15-37) 07/21/19 23:42 ALT 42 U/L (14-59) 07/21/19 23:42 Alkaline Phosphatase 81 U/L (46-116) 07/21/19 23:42 Total Protein 8.3 g/dL (6.4-8.2) H 07/21/19 23:42 Albumin 3.7 g/dL (3.4-5.0) 07/21/19 23:42 Lipase 57 U/L (73-393) 07/21/19 23:42 Urine Color Yellow (Yellow) 07/22/19 00:00 Urine Clarity Clear (Clear) 07/22/19 00:00 Urine pH 6.0 (5-8) 07/22/19 00:00 Ur Specific [place] 1.025 (1.005-1.025) 07/22/19 00:00 Urine Protein 100 mg/dL (Negative) H 07/22/19 00:00 Urine Ketones 40 mg/dL (Negative) H 07/22/19 00:00 Urine Blood Small (Negative) H 07/22/19 00:00 Urine Nitrite Negative (Negative) 07/22/19 00:00 Urine Bilirubin Small (Negative) H 07/22/19 00:00 Urine Urobilinogen 0.2 EU/dL (Up TO 0.2) 07/22/19 00:00 Ur Leukocyte Esterase Negative (Negative) 07/22/19 00:00 Urine RBC 3-5 HPF (0-2) H 07/22/19 00:00 Urine WBC 0-2 HPF (0-5) 07/22/19 00:00 Ur Epithelial Cells Rare HPF (Negative) 07/22/19 00:00 Urine Crystals Negative HPF (Negative) 07/22/19 00:00 Urine Bacteria Rare HPF (Negative) 07/22/19 00:00 Urine Casts Negative LPF (Negative) 07/22/19 00:00 Urine Mucus Negative (Negative) 07/22/19 00:00 Ur Culture Indicated? No 07/22/19 00:00 Urine Glucose Negative mg/dL (Negative) 07/22/19 00:00
[2019-07-23] MEDS: Lactated Ringers 1,000 ML 125 ML IV (14:19)
[2019-07-23 16:09] VITALS: BP 109/65; PULSE 109; RESP 18; TEMP 37.2; O2SAT 95
[2019-07-23] MEDS: Milk of Magnesia 30 ML CUP PO (16:10)
[2019-07-23 19:59] VITALS: BP 113/71; PULSE 98; RESP 18; TEMP 36.8; O2SAT 96
[2019-07-23 23:38] VITALS: BP 136/63; PULSE 119; RESP 18; TEMP 37; O2SAT 96
[2019-07-24] MEDS: CIPROFLOXACIN 400 MG/200 ML BAG 200 MG IVPB ×2 (00:06→12:10)
[2019-07-24] MEDS: metroNIDAZOLE 500 MG/100 ML BAG 100 MG IVPB ×2 (00:06→10:52)
[2019-07-24] MEDS: Normal Saline Flush 10 ML SYR IVP ×3 (02:53→10:52)
[2019-07-24 03:39] VITALS: BP 105/61; PULSE 96; RESP 17; TEMP 37.2; O2SAT 96
[2019-07-24 06:25] LABS: Abs Immature Grans 0.06 k/cumm (0.0-0.09); Absolute Basophil Count 0.02 k/cumm (0.0-0.2); Absolute Eosinophil Count 0.25 k/cumm (0.0-0.7); Absolute Lymphocyte Count 0.75 k/cumm (1.2-3.4); Absolute Monocyte Count 0.64 k/cumm (0.11-0.7); Absolute Neutrophil Count 10.04 k/cumm (1.2-6.7); Basophils % 0.2; Eosinophils % 2.1; HCT 32.9 % (36.0-46.0); HGB 10.7 g/dL (12.0-15.5); Immature Grans % 0.5 %; Lymphocytes % 6.4; Mean Corp. HGB Concentration 32.5 g/dL (32.0-36.0); Mean Corpuscular Hemoglobin 27.6 pg (27.0-33.0); Mean Platelet Volume 9.3 fL (8.0-11.0); Monocytes % 5.4; Neutrophils % 85.4; Platelet Count 275 x1000/uL (130-400); RBC 3.87 m/cumm (4.00-5.20); RBC Distribution Width 14.2 % (11.7-14.6); White Blood Cell Count 11.76 k/cumm (4.4-10.8)
[2019-07-24 06:38] LABS: C-Reactive Protein > 25.00 mg/dL (0.0-0.3)
[2019-07-24] MEDS: Ketorolac 30 MG/ML VIAL IVP (07:35)
[2019-07-24 08:10] VITALS: BP 124/80; PULSE 107; RESP 18; TEMP 37.3; O2SAT 96
--- NOTE | 2019-07-24 10:02 | DSE_ITS ---
Date of service: 07/24/19 Time of Service: 10:02 DS: Diagnosis Discharge Diagnosis (1) Perforated appendicitis: Status: Acute (2) Asthma: Status: Chronic (3) Environmental allergies: Status: Chronic (4) Mild intermittent asthma without complication: Status: Acute (5) Hyperlipidemia, unspecified: Status: Acute (6) Allergic rhinitis, unspecified: Status: Acute Discharge Plan Disposition Patient Disposition: HOME Condition: Improving Discharge Details Chief Complaint: Abd Prob Clinical Impression: Acute appendicitis Reason For Visit: ACUTE APPENDICITIS Admit Date/Time: 07/22/19 00:48 Admit Provider: Julia Samuels Attending Provider: Julia Samuels Primary Care Provider: Adelina Vasquez [facility]: pt came into hosp on 3 w/ acute appendicitis. She underwent open appendectomy and was found to have perforated appendix. She was kept over night for IV abx, pain control, wound care and nursing care. on POD#1 she wasn't eating much, passing gas and not really walking and her WBC was equivacal, so she kept over night for continued IV abx and supportive care. on POD#2, she has had a BM, she is tolerating a regular diet, she is up walking and looks better. WBC is trending down. She was given instructions in wound care, activity, Rx, warning signs. Se will f/u w/ dr samuels on thrusday- she will need to call clinic for appt. Patient verbalizes understanding of all her instructions and has no questions. She is discharged in stable and satisfactory condition Home Meds and New Rx's Prescriptions: New ciprofloxacin HCl 500 mg tablet 500 mg PO BID 6 Days Qty: 12 RF: 0 metronidazole 500 mg tablet 500 mg PO TID 6 Days Qty: 18 RF: 0 oxycodone-acetaminophen 5-325 mg tablet 1 tab PO Q4H PRN (Reason: pain) Qty: 14 RF: 0 Lactobacillus acidophilus Capsule 10,000 mmu cells PO DAILY Qty: 30 RF: 0 Continued Allergy Relief Tablets PO PRN RF: 0 albuterol sulfate [Proventil HFA] 90 mcg/actuation HFA aerosol inhaler 1 - 2 puff Inhalation Q4H PRN Qty: 1 RF: 2 multivitamin [Daily Multi-Vitamin] 1 EACH tablet 1 ea PO DAILY RF: 0 cholecalciferol (vitamin D3) 5,000 UNIT tablet 5,000 unit PO DAILY PRNRF: 0 Discharge Instructions Additional Instructions: The top bandage can be removed tomorrow or the next day. The steri strips underneath the bandage will usually stick for about a week. When the edges start to curl up, they can be removed. It is okay to shower tomorrow, the water can run over the steri strips Do not swim or soak in a tub for two weeks Call for any concerns including fever, increased pain, vomiting, incision redness or drainage. Do not lift more than 15 pounds for four weeks. Walking and stairs are fine. Do not drive if on narcotic pain meds or if limited by pain. May use Tylenol for pain control once the Percocet is not being taken. Ice is also an option. The maximum dose for Tylenol is 4000 mg/day. If concerned about constipation, you may use a stool softener or milk of magnesia. Referrals: Julia Samuels MD [ [facility] STAFF PHYSICIAN] - (Return for a postop visit as needed. Please call with any concerns or if you need a note for work.) Activity:: Do not lift more than 15 pounds Equipment/Supplies:: No Equipment Needed Diet:: As Tolerated Discharge Orders Discharge Orders: Discharge Order (Routine); Ordered 07/24/19 Ordered By: Mary Singh DS: Summary Status at Discharge Functional status at discharge: independent ambulation Overall status at discharge: patient is back to baseline Mental Status: mental status grossly normal Speech and Movement: speech and movement normal Mood: congruent mood Affect: labile affect Exam Psych Mental Status: mental status grossly normal Speech and Movement: speech and movement normal Mood: congruent mood Affect: labile affect DS: Data Vitals/I&O Vitals and I&O: Vital Signs Temperature 37.3 C 07/24/19 08:10 Temperature Source Tympanic 07/24/19 08:10 Pulse 107 H 07/24/19 08:10 Pulse Rhythm Regular 07/24/19 08:00 Respiratory Rate 18 07/24/19 08:10 Respiratory Effort 07/24/19 08:00 Respiratory Depth Normal 07/24/19 08:00 Respiratory Pattern Normal 07/24/19 08:00 Blood Pressure 124/80 07/24/19 08:10 Blood Pressure Position Supine 07/21/19 22:23 Pulse Oximetry 96 07/24/19 08:10 Oxygen Delivery Method Room Air 07/24/19 08:10 Oxygen Flow Rate 0 07/24/19 08:10 Pain Level 4 07/24/19 08:10 Comment 07/23/19 19:59 Intake & Output 07/23/19 07/23/19 07/24/19 11:59 23:59 11:59 Intake Total 1800 / 2700 900 / 2700 550 / 550 Output Total 1250 / 2150 900 / 2150 Balance 550 / 550 0 / 550 550 / 550 Intake: IV 1400 / 1700 300 / 1700 300 / 300 Oral 400 / 1000 600 / 1000 250 / 250 Output: Urine 1250 / 2150 900 / 2150 Other: Urine Color Yellow Light Lisha Urine Appearance Clear Clear Urine Odor None Strong Comment hat in toilet hat in toilet void x 1 in toilet Stool Size Large Moderate Stool Characteristics Formed Liquid Liquid Voiding Methods Toilet Toilet Toilet Data Completed and Pending Labs on day of discharge: Labs from last 24 hours 07/24/19 07/24/19 06:01 06:01 WBC 11.76 H RBC 3.87 L Hgb 10.7 L Hct 32.9 L MCV 85.0 MCH 27.6 MCHC 32.5 RDW 14.2 Plt Count 275 MPV 9.3 Immature Gran % 0.5 Neutrophils % 85.4 Lymphocytes % 6.4 Monocytes % 5.4 Eosinophils % 2.1 Basophils % 0.2 Absolute Neutrophils 10.04 H Absolute Lymphocytes 0.75 L Absolute Monocytes 0.64 Absolute Eosinophils 0.25 Absolute Basophils 0.02 C-Reactive Protein > 25.00 H [facility] Medical History Asthma (Chronic) Environmental allergies (Chronic) Surgical History S/P oophorectomy (Chronic) with bilateral salpingectomy [place] teeth extraction (Inactive) Family History Mother No problems noted. Father No problems noted. Grandfather Cancer Kidney CA Grandmother Cancer Not sure type ?stomach Grandmother Ovarian cancer Or endometrial CA? Diabetes maternal grandmother Essential hypertension maternal grandmother Heart disease Myocardial infarction Great Grandmother , Heart issues Cancer Breast CA Other Personal history of malignant neoplasm Social History Smoking/Tobacco Use Status: Never Alcohol Intake: never Substance use type: does not use current occupation: Sales What type of physical activity do you participate in: walking and other Details: exercise ball Duration: 15-30 minutes/day Frequency: 3-4 times per week Seatbelt use: always Drive intox or ride w/intox diesel pile driver operator: No Working smoke detector in home: Yes Fire extinguisher in home: Yes Carbon monox detector in home: Yes
--- NOTE | 2019-07-24 10:19 | PGE_ITS ---
Date of Service Date of service: 07/24/19 Time of Service: 10:19 Assessment and Plan Assessment and plan (1) Perforated appendicitis: Status: Acute Assessment and plan: POD#2 up walking around tolerating po's +BS d/c home see D/C order wbc trending down rx cipro/flagyl & probiotics wound care d/w pt wound care/activity/warning signs f/u in clinic on w/ / rohit return to ed if problems. (2) Asthma: Status: Chronic Subjective Subjective Interval history since last seen: Pt is doing well. no headaches. No CP or SOB. no productive cough. no dysuria. no leg pain or swelling. pt is tolerating a regular diet. she is up walking. She has moved her bowels w/ no bleeding. Exam HENMT Other: mild sore throat. no thrush no dental problems. no eye pain or redness Resp Effort & Inspection: normal respiratory effort and able to speak in complete sentences Auscultation: clear to auscultation bilaterally Cardio Rate: regular rate Rhythm: regular rhythm GI Inspection: incision (c/d/i) Palpation: soft Auscultation: normal bowel sounds Extrem General: normal to inspection, full ROM and no clubbing, cyanosis or edema Objective Objective Clinical Data: Abnormal lab results 07/24/19 07/24/19 Range/Units 06:01 06:01 WBC 11.76 H (4.4-10.8) k/cumm RBC 3.87 L (4.00-5.20) m/cumm Hgb 10.7 L (12.0-15.5) g/dL Hct 32.9 L (36.0-46.0) % Absolute Neutrophils 10.04 H (1.2-6.7) k/cumm Absolute Lymphocytes 0.75 L (1.2-3.4) k/cumm C-Reactive Protein > 25.00 H (0.0-0.3) mg/dL Vital Signs Temperature 37.3 C 07/24/19 08:10 Temperature Source Tympanic 07/24/19 08:10 Pulse 107 H 07/24/19 08:10 Pulse Rhythm Regular 07/24/19 08:00 Respiratory Rate 18 07/24/19 08:10 Respiratory Effort 07/24/19 08:00 Respiratory Depth Normal 07/24/19 08:00 Respiratory Pattern Normal 07/24/19 08:00 Blood Pressure 124/80 07/24/19 08:10 Blood Pressure Position Supine 07/21/19 22:23 Pulse Oximetry 96 07/24/19 08:10 Oxygen Delivery Method Room Air 07/24/19 08:10 Oxygen Flow Rate 0 07/24/19 08:10 Pain Level 4 07/24/19 08:10 Comment 07/23/19 19:59 Intake & Output 07/23/19 07/23/19 07/24/19 11:59 23:59 11:59 Intake Total 1800 / 2700 900 / 2700 550 / 550 Output Total 1250 / 2150 900 / 2150 Balance 550 / 550 0 / 550 550 / 550 Intake: IV 1400 / 1700 300 / 1700 300 / 300 Oral 400 / 1000 600 / 1000 250 / 250 Output: Urine 1250 / 2150 900 / 2150 Other: Urine Color Yellow Light Lisha Urine Appearance Clear Clear Urine Odor None Strong Comment hat in toilet hat in toilet void x 1 in toilet Stool Size Large Moderate Stool Characteristics Formed Liquid Liquid Voiding Methods Toilet Toilet Toilet Laboratory Results WBC 11.76 k/cumm (4.4-10.8) H 07/24/19 06:01 RBC 3.87 m/cumm (4.00-5.20) L 07/24/19 06:01 Hgb 10.7 g/dL (12.0-15.5) L 07/24/19 06:01 Hct 32.9 % (36.0-46.0) L 07/24/19 06:01 MCV 85.0 fL (80-95) 07/24/19 06:01 MCH 27.6 pg (27.0-33.0) 07/24/19 06:01 MCHC 32.5 g/dL (32.0-36.0) 07/24/19 06:01 RDW 14.2 % (11.7-14.6) 07/24/19 06:01 Plt Count 275 x1000/uL (130-400) 07/24/19 06:01 MPV 9.3 fL (8.0-11.0) 07/24/19 06:01 Immature Gran % 0.5 % 07/24/19 06:01 Neutrophils % 85.4 07/24/19 06:01 Band Neutrophils % 7.0 % 07/23/19 06:40 Lymphocytes % 6.4 07/24/19 06:01 Monocytes % 5.4 07/24/19 06:01 Eosinophils % 2.1 07/24/19 06:01 Basophils % 0.2 07/24/19 06:01 Absolute Neutrophils 10.04 k/cumm (1.2-6.7) H 07/24/19 06:01 Absolute Lymphocytes 0.75 k/cumm (1.2-3.4) L 07/24/19 06:01 Absolute Monocytes 0.64 k/cumm (0.11-0.7) 07/24/19 06:01 Absolute Eosinophils 0.25 k/cumm (0.0-0.7) 07/24/19 06:01 Absolute Basophils 0.02 k/cumm (0.0-0.2) 07/24/19 06:01 Differential Comment Manual differential 07/23/19 06:40 RBC Morphology See below 07/23/19 06:40 Polychromasia Present 07/23/19 06:40 Sodium 135 mmol/L (136-145) L 07/21/19 23:42 Potassium 3.8 mmol/L (3.5-5.1) 07/21/19 23:42 Chloride 98 mmol/L (98-107) 07/21/19 23:42 Carbon Dioxide 25.6 mmol/L (21.0-32.0) 07/21/19 23:42 Anion Gap 11.4 mmol/L (3-11) H 07/21/19 23:42 BUN 7 mg/dL (7-18) 07/21/19 23:42 Creatinine 1.02 mg/dL (0.55-1.02) 07/21/19 23:42 Estimated GFR/1.73 m2 >= 60.00 (mL/min/1.73m2) 07/21/19 23:42 Glucose 163 mg/dL (74-106) H 07/21/19 23:42 Calcium 9.0 mg/dL (8.5-10.1) 07/21/19 23:42 Total Bilirubin 1.4 mg/dL (0.2-1.0) H 07/21/19 23:42 AST 29 U/L (15-37) 07/21/19 23:42 ALT 42 U/L (14-59) 07/21/19 23:42 Alkaline Phosphatase 81 U/L (46-116) 07/21/19 23:42 C-Reactive Protein > 25.00 mg/dL (0.0-0.3) H 07/24/19 06:01 Total Protein 8.3 g/dL (6.4-8.2) H 07/21/19 23:42 Albumin 3.7 g/dL (3.4-5.0) 07/21/19 23:42 Lipase 57 U/L (73-393) 07/21/19 23:42 Urine Color Yellow (Yellow) 07/22/19 00:00 Urine Clarity Clear (Clear) 07/22/19 00:00 Urine pH 6.0 (5-8) 07/22/19 00:00 Ur Specific [place] 1.025 (1.005-1.025) 07/22/19 00:00 Urine Protein 100 mg/dL (Negative) H 07/22/19 00:00 Urine Ketones 40 mg/dL (Negative) H 07/22/19 00:00 Urine Blood Small (Negative) H 07/22/19 00:00 Urine Nitrite Negative (Negative) 07/22/19 00:00 Urine Bilirubin Small (Negative) H 07/22/19 00:00 Urine Urobilinogen 0.2 EU/dL (Up TO 0.2) 07/22/19 00:00 Ur Leukocyte Esterase Negative (Negative) 07/22/19 00:00 Urine RBC 3-5 HPF (0-2) H 07/22/19 00:00 Urine WBC 0-2 HPF (0-5) 07/22/19 00:00 Ur Epithelial Cells Rare HPF (Negative) 07/22/19 00:00 Urine Crystals Negative HPF (Negative) 07/22/19 00:00 Urine Bacteria Rare HPF (Negative) 07/22/19 00:00 Urine Casts Negative LPF (Negative) 07/22/19 00:00 Urine Mucus Negative (Negative) 07/22/19 00:00 Ur Culture Indicated? No 07/22/19 00:00 Urine Glucose Negative mg/dL (Negative) 07/22/19 00:00
[2019-07-24 11:44] VITALS: BP 117/74; PULSE 99; RESP 17; TEMP 37.2; O2SAT 99
--- NOTE | 2019-07-24 12:55 | PDOC.CMDIS ---
LACE Index Scoring Tool - Questions: Length of Stay (in days): 2 Acuity (Admit via E.D.?): Yes E.D. Visits: 1 - Answers: Total Score: 6 Risk of Readmission: Low Risk Care Management Discharge Reason for Hospitalization: Acute Appendicitis Discharge Plan: Anticipate Hilda will return home when medically cleared with no anticipated services. She will follow up with her PCP, as recommended. Her family will drive her home when ready. Patient/Family Education Needs: Review discharge instructions, discuss Ask Me Three.
--- NOTE | 2019-07-24 14:37 | NUR.NOTE ---
patient still waiting on a ride and she stated it would be a long time. RN notified secretary of state and oncoming charge RNNursing Note:
--- NOTE | 2019-07-25 07:49 | ROE_ITS ---
DATE OF PROCEDURE July 22, 2019 PREOPERATIVE DIAGNOSIS Acute appendicitis. POSTOPERATIVE DIAGNOSES Perforated appendicitis. PROCEDURE Open appendectomy. SURGEON Julia Samuels M.D. ANESTHESIA Local and general. INDICATIONS This is a 38-year-old woman who presented with about a 24-hour history of abdominal pain. She had a CT scan of the abdomen and pelvis that was consistent with acte appendicitis and an elevated white blood cell count. Due to the concerns about Coronia virus risk, we elected to proceed with an open appendectomy and spinal to avoid manipulation of the airway. The spinal anesthetic was not effective so the decision was made to proceed under general. PROCEDURE DESCRIPTION The patient was placed supine on the operating table and after induction of general anesthesia, had her abdomen prepped and draped sterilely. A transverse incision was made at McBurney point after injecting Marcaine. Subcutaneous tissue was divided with cautery down to the external oblique fascia. A muscle splitting incision was made. The peritenoneum was carefully entered sharply and there was the presence of turbid fluid consistent with perforation. The cecum was mobilized by taking down some lateral peritoneal attachment and the appendix mobilized with gently blunt dissection. There was no obvious abscessed pocket. The appendix was draped down into the pelvis and was fairly long. This was ultimately mobilized through the incision. The mesoappendix was taken down by clamping, dividing and ligated with #3-0 Vicryl ties. Once the appendiceal base was isolated, the linear stapler was used to separate the appendix from the cecal base. Of note, the base of the appendix was uninvolved. The perforation appeared to be between the first and second third of the appendix. The pelvis was copiously irrigated and then suctioned clean. The fluid suctioned toward the end of the procedure appeared clear. There was good hemostasis. The peritoneum was closed with a running #1-Vicryl stitch, then the internal and external oblique fascia was closed with a running #1 PDS. The subcutaneous tissue was irrigated. 20 cc of Exparel was then injected in 1 cc of aliquots 1 cm apart. The skin was closed with a running #4-0 Monocryl subcuticular stitch. She tolerated the procedure well and was stable to Recovery.
== END 2019-07-24 14:48 | disposition home or self-care (01) ==
LOC: ER 07-22 01:11 → MS 07-22 01:24
PROVIDERS: Surgery; Admitting Provider Surgery; Emergency Provider Emergency Medicine; PCP Nurse Practitioner; Visit Provider Surgery
PROC: 0DTJ0ZZ Resection of Appendix, Open Approach (ICD-10-PCS; CPT 44950; principal; 2019-07-22 09:30)
DX: K35.32 Acute appendicitis with perforation, localized peritonitis, and gangrene, without abscess (principal); J45.20 Mild intermittent asthma, uncomplicated; E78.5 Hyperlipidemia, unspecified
CPT/HCPCS: 44950; 36415; 80053; 81025; 83690; 96361; 96374; 96375; 97110; 97530; 99223; 99238; 99285; NC; 74177; 81003; 81015; 85025; 86140; 88304; G0378; J0744; J1100; J1885; J2001; J2250; J2405; J2704; J3490

== ENCOUNTER 2019-08-09 07:00 | Outpatient (CLI) | payer OTHER, SELFPAY ==
[2019-08-09] MEDS: Breeza Beverage 473 ML BTL PO ×2 (07:59→08:00)
[2019-08-09] MEDS: Omnipaque 350 MG/ML 50 ML BTL PO (08:00)
[2019-08-09] MEDS: Normal Saline - Diluent 50 ML VIAL IV (08:55)
[2019-08-09] MEDS: Omnipaque 350 MG/ML 100 ML BTL IJ (08:56)
--- NOTE | 2019-08-09 09:30 | DI.CT_ITS ---
EXAM: CT ABDOMEN PELVIS W CLINICAL HISTORY: Pain s/p appendectomy,K35.32 COMPARISON: CT ABDOMEN PELVIS W from 07/22/2019 FINDINGS: CT examination of the abdomen and pelvis was performed with a bolus infusion of 100 cc of Omnipaque 3 50. Oral dilute Omnipaque 350 was also administered. Images obtained through the lung bases are unremarkable. There is a hiatal hernia. The liver and sp jeremiah are unremarkable with an incidental low-attenuation Apoorva falciform focus noted as seen on prior study, presumably benign. Pancreas is unremarkable. Cholelithiasis again noted without CT evidence of acute inflammatory process. No biliary dilatation. There is moderate wall thickening of duodenum and proximal jejunum, non-specific. Please correlate c linically. Adrenals and kidneys unremarkable except for low-attenuation renal lesions as noted on prior study. Abdominal aorta and major branches are unremarkable. No significant abdominal wall hernia. There is a fluid attenuation, approximately 5 cm in diameter, well-circumscribed rounded mass in the subcutaneous fat just superficial to the anterior abdominal mu sculature in the right lower quadrant, likely post surgical seroma or resolving hematoma. There is a poorly defined area of fluid to soft tissue attenuation in the right lower quadrant medial to the cecum which appears to contain an appendicolith. This is not walled-off and there is no well -defined fluid collection or abscess. No free air is seen. No gas collection identified. The findi ngs are consistent with a postoperative phlegmon, perhaps induced by appendicolith with a perforated appendix. No abscess identified elsewhere in the abdominal cavity. No peritoneal fluid. No evidence of bowel obstruction. Housekeeping Room Inspector structures appear intact. IMPRESSION: 1. Findings suggesting phlegmon of the right lower quadrant associated with presumed free appendicol ith. No definite abscess formation. Phlegmon is about 3-4 cm in diameter. 2. Presumed subcutaneous resolving hematoma or seroma of the right lower quadrant, presumably associ ated with the surgical site.
== END 2019-08-09 07:20 ==
PROVIDERS: PCP Nurse Practitioner; Visit Provider Surgery
DX: G89.18 Other acute postprocedural pain (principal); K80.20 Calculus of gallbladder without cholecystitis without obstruction; K44.9 Diaphragmatic hernia without obstruction or gangrene; K68.11 Postprocedural retroperitoneal abscess; K38.8 Other specified diseases of appendix
CPT/HCPCS: 74177; J3490; Q9967

== ENCOUNTER 2019-08-12 01:55 | Outpatient (CLI) | payer OTHER, SELFPAY ==
[2019-08-12 08:30] LABS: Abs Immature Grans 0.02 k/cumm (0.0-0.09); Absolute Basophil Count 0.04 k/cumm (0.0-0.2); Absolute Eosinophil Count 0.42 k/cumm (0.0-0.7); Absolute Lymphocyte Count 1.32 k/cumm (1.2-3.4); Absolute Monocyte Count 0.71 k/cumm (0.11-0.7); Absolute Neutrophil Count 5.21 k/cumm (1.2-6.7); Basophils % 0.5; Eosinophils % 5.4; HCT 37.6 % (36.0-46.0); HGB 12.4 g/dL (12.0-15.5); Immature Grans % 0.3 %; Lymphocytes % 17.1; Mean Corpuscular Hemoglobin 27.7 pg (27.0-33.0); Mean Corpuscular Volume 84.1 fL (80-95); Mean Platelet Volume 8.7 fL (8.0-11.0); Monocytes % 9.2; Neutrophils % 67.5; Platelet Count 432 x1000/uL (130-400); RBC 4.47 m/cumm (4.00-5.20); RBC Distribution Width 14.6 % (11.7-14.6); White Blood Cell Count 7.72 k/cumm (4.4-10.8)
== END 2019-08-12 02:15 ==
PROVIDERS: Surgery; PCP Nurse Practitioner; Visit Provider Family Medicine
DX: G89.18 Other acute postprocedural pain (principal); K35.32 Acute appendicitis with perforation, localized peritonitis, and gangrene, without abscess
CPT/HCPCS: 36415; 85025

== ENCOUNTER 2019-08-22 01:52 | Outpatient (CLI) | payer OTHER, SELFPAY ==
--- NOTE | 2019-08-22 06:30 | DI.CT_ITS ---
EXAM: CT ABDOMEN PELVIS W CLINICAL HISTORY: Follow up abscess,[id number] COMPARISON: CT ABDOMEN PELVIS W from 08/09/2019 FINDINGS: CT examination of the abdomen and pelvis was performed with a bolus infusion 100 cc of Omnipaque 350 and ingestion of dilute barium. Images obtained through the lung bases are unremarkable. The liver a nd spleen appear normal. Note is made of cholelithiasis. No biliary dilatation. Unremarkable appea yfn of pancreas. Adrenals are unremarkable. Multiple small bilateral presumed renal cysts noted. Abdominal aorta is of normal diameter and no major vascular abnormality is seen. No abdominal or pelvic adenopathy seen. Previously described presumed right lower quadrant phlegmon appendicolith is much less prominent than on the previous examination, appendicolith no longer visualized and there is only minimal residual i ncreased soft tissue radiodensity in this area. No evidence of abscess formation. The previously described presumed subcutaneous seroma or hematoma has essentially resolved since the previous examination. No free pelvic fluid collection seen. Note is made of an approximately 3 cm in diameter loculated co llection in the expected location of the left ovary, ovarian follicles were present at this site on p rior examination and the findings are consistent with ovarian cyst. IMPRESSION: Interval resolution of subcutaneous hematoma or seroma noted in right lower quadrant on prior study o f August 08. Marked interval improvement in appearance of presumed right lower quadrant phlegmon with extruded hernan endicolith noted on prior examination. No evidence of abscess at this time.
[2019-08-22] MEDS: Omnipaque 350 MG/ML 100 ML BTL IV (09:34)
== END 2019-08-22 02:12 ==
PROVIDERS: PCP Nurse Practitioner; Visit Provider Surgery
DX: T81.43XD Infection following a procedure, organ and space surgical site, subsequent encounter (principal); K68.11 Postprocedural retroperitoneal abscess; K80.20 Calculus of gallbladder without cholecystitis without obstruction; N83.292 Other ovarian cyst, left side; N28.1 Cyst of kidney, acquired
CPT/HCPCS: 74177; J3490

== ENCOUNTER 2019-08-31 11:48 | Outpatient (REF) | payer OTHER, SELFPAY ==
--- NOTE | 2019-08-31 11:15 | PAPFT_PTH ---
PATIENT: Hilda Bliss LOC: [facility] U#:[id number] AGE/SX: 38/F ROOM: RE08/31/[address]: Mathew Stringer MD : 1980 BED: DIS: 08/31/2019 SPEC #: [id number] RECD: 08/31/19 12:36 STATUS: ALMAZ RERadha #: [id number] SHIREEN: 08/31/19 11:[address]: Mathew Stringer DEPT: [facility] Cytology RECD BY: Fidencio Reilly ENTERED: 08/31/19 12:37 SP TYPE: PAPFT OTHR DR: Adelina Vasquez APRN Tissues: 1 - CX/ENDOCX FOR PAP SMEARS Procedures: PAP THIN PREP/UVM Screening HPV DNA PROBE Comments: [id number]
== END 2019-08-31 12:08 ==
LOC: LBN 11:48
PROVIDERS: PCP Nurse Practitioner; Visit Provider Obstetrics & Gynecology
DX: Z12.4 Encounter for screening for malignant neoplasm of cervix (principal); Z11.51 Encounter for screening for human papillomavirus (HPV)
CPT/HCPCS: 88142; 87624

== ENCOUNTER 2019-09-05 02:04 | Outpatient (CLI) | payer OTHER, SELFPAY ==
--- NOTE | 2019-09-05 06:45 | DI.US_ITS ---
EXAM: US PELVIS TRANSVAGINAL CLINICAL HISTORY: F/U LT OVARIAN CYST ON CT,N83.202 TECHNIQUE: 2D digital imaging was performed. COMPARISON: CT ABDOMEN PELVIS W from 08/22/2019 FINDINGS: The uterus measures 6.7 x 2.5 x 3.7 cm. The endometrial stripe measures 5 millimeters. Patient is s tatus post right oophorectomy. Follicles are seen on the right ovary. There is no evidence of a todd picious mass. Previously noted cyst measuring approximately 2.[address] has decreased in s ize. There is no free fluid. There is no hydronephrosis. Small renal cysts are seen. The bladder is unremarkable. IMPRESSION: Status post right oophorectomy. The left ovary shows small follicles.
== END 2019-09-05 02:24 ==
PROVIDERS: PCP Nurse Practitioner; Visit Provider Surgery
DX: N83.02 Follicular cyst of left ovary (principal); Z90.721 Acquired absence of ovaries, unilateral; N28.1 Cyst of kidney, acquired
CPT/HCPCS: 76830; 76856

== ENCOUNTER 2021-08-15 19:19 | Outpatient (REF) | payer OTHER, SELFPAY | END 2021-08-15 19:20 | disposition home or self-care (01) | LOC: LBN 19:19 | PROVIDERS: PCP Nurse Practitioner; Visit Provider Obstetrics & Gynecology | DX: R30.0 Dysuria (principal) | CPT/HCPCS: 87086 ==

== ENCOUNTER 2022-03-26 09:21 | Emergency (ER) | payer OTHER, SELFPAY ==
[2022-03-26 09:25] VITALS: BP 133/97; PULSE 113; RESP 18; TEMP 37; O2SAT 98
[2022-03-26 09:50] LABS: Bilirubin Negative (Negative); Blood Small (Negative); Clarity Clear (Clear); Glucose Negative (Negative); Ketones 40 mg/dL (Negative); Leukocyte Esterase Negative (Negative); Nitrite Negative (Negative); Urobilinogen 0.2 EU/dL (Up TO 0.2); pH 6.5 (5-8)
--- NOTE | 2022-03-26 09:53 | ED.GENADUL_ITS ---
Discharge Plan Disposition Patient Disposition: Home Condition: Stable Discharge Details Clinical Impression: Left ureteral stone Primary Care Provider: Adelina Vasquez ED Provider: Carla Carter Home Meds and New Rx's Prescriptions: New tamsulosin 0.4 mg capsule 0.4 mg PO QHS 7 Days Qty: 7 0RF Rx Instructions: Take one tablet at bedtime ketorolac 10 mg tablet 10 mg PO TID PRN (Reason: pain) 4 Days Qty: 12 0RF Rx Instructions: Take one tablet three times a day x 4 days No Action Allergy Relief Tablets PO PRN albuterol sulfate [Proventil HFA] 90 mcg/actuation HFA aerosol inhaler 1 - 2 puff Inhalation Q4H PRN Qty: 1 6RF Rx Instructions: Dispense brand that is covered please. Brand name or generic. multivitamin [Daily Multi-Vitamin] 1 EACH tablet 1 ea PO DAILY Discharge Instructions Instructions: Kidney Stones (ED), How to Strain Your Urine (ED) Additional Instructions: Please strain all your urine. Take the medication as prescribed. Please take Tylenol or Ibuprofen with food every 4-6 hours as needed for pain and swelling. The urology office should call you early next week for an appointment. Please keep that appointment. Follow up with Urology provider in 3-5 days. Return to ED sooner if any worsening or concerns. Increase oral fluids. Stand Alone Forms: Work Release Referrals: Alexey Cruz MD [ [facility] STAFF PHYSICIAN] - 5 days Medical Decision Making 41-year-old female presents to the ER with a chief complaint of left lower back pain which radiates around to his left lower abdomen which began yesterday. She reports emesis times once this morning. Patient is hesitant to have a CT scan. Urinalysis CBC CMP ordered. US initially ordered, however pt declined this, CT ordered. CBC shows no leukocytosis, neutrophils 7.78, BUN 13 creatinine 1.4 GFR is 47, urinalysis shows trace protein 40 ketones and small blood 5-10 RBCs. No evidence for urinary tract infection no leukocytes no nitrites. 1155: CT shows 7 mm ureteral stone with moderate hydro-. Discussed results with patient who verbalized understanding. Will page urology for consult. 15 mg of Toradol and 0.4 of tamsulosin ordered. 1237: Spoke with urology regarding patient case and details spoke with Cindy Weatehrs she reports that she will get patient an appointment for sometime early next week. I will relay this information to the patient. Discussed home care, follow-up care and strict return instructions with patient who verbalized understanding. Medical Records Medical records reviewed: Yes I reviewed the patient's medical records. Lab Data Lab results reviewed: Yes I reviewed the patient's lab results. Labs: Laboratory Tests Range/Units 03/26/22 03/26/22 03/26/22 09:33 10:07 10:07 WBC (4.4-10.8) 10^3/uL 10.42 RBC (3.93-5.22) 10^6/uL 4.93 Hgb (11.2-15.7) g/dL 13.8 Hct (36.0-46.0) % 42.3 MCV (80-95) fL 86 MCH (27.0-33.0) pg 28.0 MCHC (32.0-36.0) % 32.6 RDW (11.7-14.6) % 12.9 Plt Count (130-400) 10^3/uL 331 MPV (8.0-11.0) fL 8.7 Immature Gran % 0.2 Neutrophils % 74.7 Lymphocytes % 15.1 Monocytes % 8.3 Eosinophils % 1.4 Basophils % 0.3 Nucleated RBC % (0.0-0.3) % 0.0 Absolute Neutrophils (1.2-6.7) 10^3/uL 7.78 H Absolute Lymphocytes (1.2-3.4) 10^3/uL 1.57 Absolute Monocytes (0.1-0.8) 10^3/uL 0.87 H Absolute Eosinophils (0.0-0.7) 10^3/uL 0.15 Absolute Basophils (0.0-0.2) 10^3/uL 0.03 Sodium (136-145) mmol/L 136 Potassium (3.5-5.1) mmol/L 3.6 Chloride (98-107) mmol/L 101 Carbon Dioxide (21.0-32.0) mmol/L 28.2 Anion Gap (3-11) mmol/L 6.8 BUN (7-18) mg/dL 13 Creatinine (0.55-1.02) mg/dL 1.4 H Est GFR (CKD-EPI 2020) (mL/min/1.73m2) 47.87 Glucose (74-106) mg/dL 100 Calcium (8.5-10.1) mg/dL 8.7 Total Bilirubin (0.2-1.0) mg/dL 0.5 AST (15-37) U/L 16 ALT (14-59) U/L 12 L Alkaline Phosphatase (46-116) U/L 82 Total Protein (6.4-8.2) g/dL 8.1 Albumin (3.4-5.0) g/dL 3.8 Urine Color (Yellow) Yellow Urine Clarity (Clear) Clear Urine pH (5-8) 6.5 Ur Specific [place] (1.005-1.025) 1.020 Urine Protein (Negative) mg/dL Trace H Urine Ketones (Negative) mg/dL 40 H Urine Blood (Negative) Small H Urine Nitrite (Negative) Negative Urine Bilirubin (Negative) Negative Urine Urobilinogen (Up TO 0.2) EU/dL 0.2 Ur Leukocyte Esterase (Negative) Negative Urine RBC (0-2) HPF 5-10 H Urine WBC (0-5) HPF 0-2 Ur Epithelial Cells (Negative) HPF Many Urine Crystals (Negative) HPF Negative Urine Bacteria (Negative) HPF Few Urine Casts (Negative) LPF Negative Urine Mucus (Negative) Negative Ur Culture Indicated? No/Sq. Contamination Urine Glucose (Negative) mg/dL Negative Sign Out No HPI General Mode of arrival: ambulatory . Date/Time Provider Initiated Documentation: 03/26/22 09:23 . Limitations to Documentation: no limitations . Information obtained by: patient, RN notes reviewed and old records reviewed . HPI Narrative: 41-year-old female presents to the ER with a chief complaint of left lower back pain which radiates around to his left lower abdomen which began yesterday. She reports emesis times once this morning. She did not take any medications prior to arrival. Endorses chills denies fever. Past medical history includes dysmenorrhea, asthma, oophorectomy, appendicitis. Related Data Home Medications Medication Instructions Recorded Confirmed multivitamin (Daily Multi-Vitamin 1 ea PO DAILY 03/21/15 03/26/22 tablet) Allergy Relief Tablets PO PRN 03/23/18 10/02/20 albuterol sulfate 90 mcg/actuation 1 - 2 puff inhalation Q4H PRN ##1 06/02/22 11/23/22 aerosol inhaler (Proventil HFA) ketorolac 10 mg tablet 10 mg PO TID PRN pain 4 days #12 03/26/22 tabs tamsulosin 0.4 mg capsule 0.4 mg PO QHS 7 days #7 caps 03/26/22 Previous Rx's Medication Instructions Recorded albuterol sulfate 90 mcg/actuation 1 - 2 puff inhalation Q4H PRN ##1 10/03/21 aerosol inhaler (Proventil HFA) ketorolac 10 mg tablet 10 mg PO TID PRN pain 4 days #12 03/26/22 tabs tamsulosin 0.4 mg capsule 0.4 mg PO QHS 7 days #7 caps 03/26/22 Allergies Allergy/AdvReac Type Severity Reaction Status Date / Time amoxicillin trihydrate AdvReac Intermediate abdominal Verified 03/26/22 09:31 [From Augmentin] cramps ibuprofen AdvReac Intermediate intensse Verified 03/26/22 09:31 Intestinal Pain potassium clavulanate AdvReac Intermediate abdominal Verified 03/26/22 09:31 [From Augmentin] cramps seasonal Allergy Intermediate cold type Uncoded 03/26/22 09:31 s/s, stuffy head, itchy eyes General Stated Complaint: FlankPain NOMAN: 3 Review of Systems All systems reviewed & are unremarkable except as noted in HPI and below Gastrointestinal Gastrointestinal: Reports as per HPI, Reports abdominal pain, Reports change in stool character (Foul smell), Reports nausea and Reports vomiting PFSH All Active Problems (Updated 03/26/22 @ 12:44 by Carla Carter NP) Left ureteral stone (Acute) Obesity (BMI 30.0-34.9) (Acute) Dysuria (Acute) Routine medical exam (Acute) Pelvic pain (Acute) Ovarian cyst, left (Acute) Intra-abdominal abscess post-procedure (Acute) Abdominal abscess (Acute) Postop check (Acute) Perforated appendicitis (Acute) Acute appendicitis (Acute) Environmental allergies (Chronic) Asthma (Chronic) S/P oophorectomy (Chronic) with bilateral salpingectomy Urinary urgency (Acute) Urinary frequency (Acute) Mild intermittent asthma without complication (Acute 03/21/15) Triggered by environmental allergies & URIs Hyperlipidemia, unspecified (Acute 12/21/15) Dysmenorrhea (Acute 05/15/12) Allergic rhinitis, unspecified (Acute 05/15/12) Family History Mother No problems noted. Father No problems noted. Grandfather Cancer Kidney CA Grandmother Cancer Not sure type ?stomach Grandmother Ovarian cancer Or endometrial CA? Diabetes maternal grandmother Essential hypertension maternal grandmother Heart disease Myocardial infarction Great Grandmother , Heart issues Cancer Breast CA Other Personal history of malignant neoplasm Social History Smoking/Tobacco Use Status: Never Smoking risk assessment performed?: Yes Alcohol Intake: current Alcohol Intake frequency: holidays/special occasions only Drug use: Never Substance use type: does not use Housing: apartment Number of Children: 0 Communication Needs: None current occupation: Sales What type of physical activity do you participate in: walking and other Details: exercise ball Duration: 15-30 minutes/day Frequency: 3-4 times per week Seatbelt use: always Drive intox or ride w/intox motor coach driver: No Working smoke detector in home: Yes Fire extinguisher in home: Yes Carbon monox detector in home: Yes Do you feel safe at home: Yes Do you feel safe in your relationship?: Yes Exam Narrative Exam Narrative: Constitutional: Alert and oriented x3. Appears stated age. Normal body habitus. Head: Normocephalic, no trauma. Chest: RRR, Normal S1, S2, distal pulses intact. Resp: Lungs clear to auscultation bilaterally, no wheezes, rales, or rhonchi. Abdomen: Soft, non-distended, Normoactive bowel sounds all 4 quads. Musculoskeletal: Normal gait, 5/5 strength to all four extremities. Skin: No suspicious rashes or lesions. Capillary refill less than 2 sec. Neurologic: Cranial nerves II-XII intact. Alert and oriented x 3. Motor: No deficits noted. Sensory: Intact bilaterally all 4 extremities. Reflexes: DTR's intact bilaterally.. Hematologic/Lymphatic: No ecchymosis, no lymphadenopathy. Course Vital Signs Vital signs: Vital Signs Temperature 37.0 C 03/26/22 09:25 Pulse 113 H 03/26/22 09:25 Respiratory Rate 18 03/26/22 09:25 Blood Pressure 133/97 H 03/26/22 09:25 Pulse Oximetry 98 03/26/22 09:25 Temperature 37.0 C 03/26/22 09:25 Temperature Source Temporal Artery Scan 03/26/22 09:25 Pulse 113 H 03/26/22 09:25 Respiratory Rate 18 03/26/22 09:25 Respiratory Effort Non-Labored 03/26/22 09:30 Blood Pressure 133/97 H 03/26/22 09:25 Blood Pressure Position Sitting 03/26/22 09:25 Pulse Oximetry 98 03/26/22 09:25 Oxygen Delivery Method Room Air 03/26/22 09:25 Oxygen Flow Rate 0 03/26/22 09:25 Pain Level 8 03/26/22 09:30 Lab/Test Results Lab/Test Results: POC- Test(urine) Negative
[2022-03-26 10:02] LABS: Bacteria Few HPF (Negative); C & S Indicated? No/Sq. Contamination; Casts Negative LPF (Negative); Crystals Negative HPF (Negative); Epithelial Cells Many HPF (Negative); Mucus Negative (Negative); WBC 0-2 HPF (0-5)
[2022-03-26] MEDS: Normal Saline 1,000 ML 1000 ML IV (10:07)
[2022-03-26 10:15] LABS: Abs Immature Grans 0.02 10^3/uL (0.0-0.06); Absolute Basophil Count 0.03 10^3/uL (0.0-0.2); Absolute Eosinophil Count 0.15 10^3/uL (0.0-0.7); Absolute Lymphocyte Count 1.57 10^3/uL (1.2-3.4); Absolute Monocyte Count 0.87 10^3/uL (0.1-0.8); Absolute Neutrophil Count 7.78 10^3/uL (1.2-6.7); Basophils % 0.3; Eosinophils % 1.4; HCT 42.3 % (36.0-46.0); HGB 13.8 g/dL (11.2-15.7); Immature Grans % 0.2; Lymphocytes % 15.1; MCHC 32.6 % (32.0-36.0); MCV 86 fL (80-95); MPV 8.7 fL (8.0-11.0); Monocytes % 8.3; Neutrophils % 74.7; Platelet Count 331 10^3/uL (130-400); RBC 4.93 10^6/uL (3.93-5.22); RDW 12.9 % (11.7-14.6); RDW-SD 40.1 fL; WBC 10.42 10^3/uL (4.4-10.8)
[2022-03-26 10:29] LABS: ALT 12 U/L (14-59); AST 16 U/L (15-37); Albumin 3.8 g/dL (3.4-5.0); Alkaline Phosphatase 82 U/L (46-116); Anion Gap 6.8 mmol/L (3-11); BUN 13 mg/dL (7-18); Bilirubin, Total 0.5 mg/dL (0.2-1.0); CO2 28.2 mmol/L (21.0-32.0); CREATININE 1.4 mg/dL (0.55-1.02); Calcium 8.7 mg/dL (8.5-10.1); Chloride 101 mmol/L (98-107); Estimated GFR 47.87 (mL/min/1.73m2); Glucose 100 mg/dL (74-106); Potassium 3.6 mmol/L (3.5-5.1); Sodium 136 mmol/L (136-145); Total Protein 8.1 g/dL (6.4-8.2)
--- NOTE | 2022-03-26 11:20 | DI.CT_ITS ---
Exam(s) CT ABDOMEN PELVIS WO EXAM: CT ABDOMEN PELVIS WO CLINICAL HISTORY: Left flank pain, R/O kidney stone. TECHNIQUE: Imaging Protocol: Axial computed tomography images with coronal and sagittal reformatted images were created and reviewed. COMPARISON: CT CT ABDOMEN PELVIS W from 08/22/2019 FINDINGS: ABDOMEN: Lung Bases: There is a small hiatal hernia. Liver: Normal density. No measurable mass. Gallbladder and biliary tract: Cholelithiasis is present. Pancreas: Normal density, no abnormal calcifications or inflammatory process. Spleen: Normal. Kidneys: Normal size, contour and axis.There is bilateral nephrolithiasis. There is a 7 mm stone in the proximal right ureter causing moderate hydronephrosis. No masses seen. Adrenal glands: No mass is seen. Lymph nodes: Within normal limits. Abdominal Aorta: Abdominal portion non-dilated. PELVIS: Bladder:Symmetric distention, no gross wall thickening. Bowel: No obstruction or bowel wall thickening. The patient appears to be status post appendectomy. Peritoneal cavity: No ascites, collection or mesenteric inflammatory response. No free air. Reproductive organs: Unremarkable as visualized. Bones: Within normal limits. There is L5 spondylolysis but no spondylolisthesis. Soft Tissues: Within normal limits. IMPRESSION: 1. 7 mm proximal right ureteral stone causing moderate hydronephrosis. 2. Bilateral nephrolithiasis. 3. Cholelithiasis. 4. Findings were discussed with Carla Carter at 11:48 a.m. on 03/26/2022. RADIATION DOSE DELIVERED: Total DLP DATA REPOSITORY: All CT scans at this facility are submitted to the National Radiology Data Registry (NRDR) Dose Index Registry (DIR) with the [employer] (ACR). RADIATION OPTIMIZATION: All CT scans at this facility use at least one of these dose optimization te chniques: automated exposure control; mA and/or kV adjustment per patient size (includes targeted exa ms where dose is matched to clinical indication); or iterative reconstruction.
[2022-03-26] MEDS: Tamsulosin 0.4 MG CAPCR PO (11:57)
[2022-03-26] MEDS: Ketorolac 15 MG/ML VIAL IVP (11:57)
== END 2022-03-26 12:56 | disposition home or self-care (01) ==
PROVIDERS: Emergency Provider Registered Nurse Emergency; PCP Nurse Practitioner
DX: N13.2 Hydronephrosis with renal and ureteral calculous obstruction (principal); K80.20 Calculus of gallbladder without cholecystitis without obstruction
CPT/HCPCS: 36415; 80053; 81025; 96361; 96374; 99284; 74176; 81003; 81015; 85025; J1885

== ENCOUNTER 2022-04-01 13:10 | Outpatient (REF) | payer OTHER, SELFPAY | END 2022-04-01 13:11 | disposition home or self-care (01) | LOC: LBN 13:10 | PROVIDERS: PCP Nurse Practitioner; Visit Provider Nurse Practitioner Gerontology | DX: N20.1 Calculus of ureter (principal) | CPT/HCPCS: 87086 ==

== ENCOUNTER 2022-04-04 05:48 | Day surgery (SDC) | payer OTHER, SELFPAY ==
[2022-04-04] VITALS (10 sets, daily range): BP systolic 105–141; BP diastolic 65–90; PULSE 69–99; RESP 12–21; TEMP 36.4–36.9; O2SAT 94–100; BMI 33.1
--- NOTE | 2022-04-04 07:03 | W.PM.HP.N ---
Date of service: 04/04/22 Time of Service: 07:03 Assessment and Plan Assessment and plan (1) Left ureteral stone: Status: Acute Assessment and plan: We will plan to do cystoscopy with left retrograde pyelogram to assess the location of her stone. Based on location, we will plan to do ureteroscopy (flexible or semirigid) and holmium laser lithotripsy of the stone. We discussed that we may need to do a staged procedure with placement of a ureteral stent and a return to the OR at a later date to complete the stone manipulation. History of Present Illness History of Present Illness Chief Complaint: Left ureteral stone Narrative: Hilda is a 41-year-old female referred to urology by the emergency room for a left ureteral stone.? This is more than likely her first true kidney stone.? She thinks that she might of had some other smaller stones passed earlier this year due to flank pain.? She has no history of gout or parathyroid disease. Currently she reports no gross hematuria, dysuria, change in frequency or urgency, fever/chills, nausea or vomiting. Review of Systems Narrative: No fevers or chills Seasonal allergies. No vision change or dysphasia No diabetes or thyroid dysfunction No cough or hemoptysis No chest pain or palpitations No hepatitis, ulcers or jaundice No seizures, strokes or peripheral neuropathy No bleeding disorders or anemia No gout or arthralgia PFSH All Active Problems Environmental allergies (Chronic) Asthma (Chronic) Allergic rhinitis, unspecified (Acute 05/15/12) Dysmenorrhea (Acute 05/15/12) Hyperlipidemia, unspecified (Acute 04/23/15) Mild intermittent asthma without complication (Acute 03/21/15) Triggered by environmental allergies & URIs Urinary frequency (Acute) Urinary urgency (Acute) S/P oophorectomy (Chronic) with bilateral salpingectomy Acute appendicitis (Acute) Perforated appendicitis (Acute) Postop check (Acute) Abdominal abscess (Acute) Intra-abdominal abscess post-procedure (Acute) Ovarian cyst, left (Acute) Pelvic pain (Acute) Routine medical exam (Acute) Dysuria (Acute) Obesity (BMI 30.0-34.9) (Acute) Left ureteral stone (Acute) Surgical History (Updated 04/04/22 @ 06:59 by Sangeetha Forrest RN) History of appendectomy History of appendectomy Family History Mother No problems noted. Father No problems noted. Grandfather Cancer Kidney CA Grandmother Cancer Not sure type ?stomach Grandmother Ovarian cancer Or endometrial CA? Diabetes maternal grandmother Essential hypertension maternal grandmother Heart disease Myocardial infarction Great Grandmother , Heart issues Cancer Breast CA Other Personal history of malignant neoplasm Social History Smoking/Tobacco Use Status: Former Tobacco Use Smoking risk assessment performed?: Yes Alcohol Intake: current Alcohol Intake frequency: holidays/special occasions only Drug use: Never Substance use type: does not use Housing: apartment Number of Children: 0 Communication Needs: None current occupation: Sales What type of physical activity do you participate in: walking and other Details: exercise ball Duration: 15-30 minutes/day Frequency: 3-4 times per week Seatbelt use: always Drive intox or ride w/intox tier truck driver: No Working smoke detector in home: Yes Fire extinguisher in home: Yes Carbon monox detector in home: Yes Do you feel safe at home: Yes Do you feel safe in your relationship?: Yes Meds Allergies and Home Medications Allergies Allergy/AdvReac Type Severity Reaction Status Date / Time amoxicillin trihydrate AdvReac Intermediate abdominal Verified 04/04/22 06:31 [From Augmentin] cramps ibuprofen AdvReac Intermediate intensse Verified 04/04/22 06:31 Intestinal Pain potassium clavulanate AdvReac Intermediate abdominal Verified 04/04/22 06:31 [From Augmentin] cramps seasonal Allergy Intermediate cold type Uncoded 04/04/22 06:31 s/s, stuffy head, itchy eyes Home Medications Medication Instructions Recorded Confirmed Type multivitamin (Daily Multi-Vitamin 1 ea PO DAILY 03/21/15 04/04/22 History tablet) Allergy Relief Tablets PO PRN 03/23/18 10/02/20 History albuterol sulfate 90 mcg/actuation 1 - 2 puff inhalation Q4H PRN ##1 10/03/21 04/04/22 Rx aerosol inhaler (Proventil HFA) tamsulosin 0.4 mg capsule 0.4 mg PO QHS 7 days #7 caps 04/01/22 04/04/22 Rx ketorolac 10 mg tablet 10 mg TID PRN 04/04/22 04/04/22 History Exam Const General: comfortable Neck Neck: supple Resp Effort & Inspection: normal respiratory effort Auscultation: clear to auscultation bilaterally Cardio Rate: regular rate Rhythm: regular rhythm GI Palpation: soft and no guarding Neuro General: patient alert and patient awake Results Last Vital Signs Temp 36.9 C 04/04/22 06:16 Pulse 99 H 04/04/22 06:16 Resp 18 04/04/22 06:16 BP 141/90 H 04/04/22 06:16 Pulse Ox 98 04/04/22 06:16
--- NOTE | 2022-04-04 07:06 | ANES.PREOP_ITS ---
General Info Date of Service Date Performed: 04/04/22 Height: 5 ft 1 in Weight: 79.6 kg Body Mass Index (BMI): 33.1 Surgical Procedure: Operation Date: 04/04/22 07:40 Proposed Procedure Side Surgeon p Cystoscopy/Laser/Retrograde/Ureteroscopy/Stone Manipulation Left Alexey Cruz MD Meds Allergies and Home Medications Allergies Allergy/AdvReac Type Severity Reaction Status Date / Time amoxicillin trihydrate AdvReac Intermediate abdominal Verified 04/04/22 06:31 [From Augmentin] cramps ibuprofen AdvReac Intermediate intensse Verified 04/04/22 06:31 Intestinal Pain potassium clavulanate AdvReac Intermediate abdominal Verified 04/04/22 06:31 [From Augmentin] cramps seasonal Allergy Intermediate cold type Uncoded 04/04/22 06:31 s/s, stuffy head, itchy eyes Home Medication Medication Instructions Recorded multivitamin (Daily Multi-Vitamin 1 ea PO DAILY 03/21/15 tablet) Allergy Relief Tablets PO PRN 03/23/18 albuterol sulfate 90 mcg/actuation 1 - 2 puff inhalation Q4H PRN ##1 10/03/21 aerosol inhaler (Proventil HFA) tamsulosin 0.4 mg capsule 0.4 mg PO QHS 7 days #7 caps 04/01/22 ketorolac 10 mg tablet 10 mg TID PRN 04/04/22 Current Visit Medications: Current Medications Generic Name Dose Route Start Last Admin Trade Name Freq PRN Reason Stop Dose Admin Ringer's Solution 1,000 mls @ 80 mls/hr 04/04/22 06:00 IV 05/03/22 23:59 INFUSION JULIANA Ciprofloxacin 400 mg in 200 mls @ 200 mls/hr 04/04/22 06:00 Cipro I.V. IVPB 04/04/22 18:00 PREOP JULIANA IV Miscellaneous Supplies 1 each 04/04/22 06:00 Iv Access IV 05/03/22 23:59 DIRECTED JULIANA Sodium Chloride 0 ml 04/04/22 06:00 Normal Saline Flush 10 Ml Syr IV 05/03/22 23:59 PRN PRN Sodium Chloride 0 ml 04/04/22 06:00 Normal Saline 10 Ml Vial IJ 05/03/22 23:59 DIRECTED PRN Sterile Water 0 ml 04/04/22 06:00 Water,Injection,Sterile 10 Ml Vial IJ 05/03/22 23:59 DIRECTED PRN PFS Active Problems Active Problems: Problem Status Onset Code Environmental allergies Asthma Allergic rhinitis, unspecified 05/15/12 J30.9 Dysmenorrhea 05/15/12 N94.6 Hyperlipidemia, unspecified 04/23/15 E78.5 Mild intermittent asthma without complication 03/21/15 J45.20 Urinary frequency R35.0 Urinary urgency R39.15 S/P oophorectomy Acute appendicitis K35.80 Perforated appendicitis K35.32 Postop check Z09 Abdominal abscess Intra-abdominal abscess post-procedure T81.43XA Ovarian cyst, left N83.202 Pelvic pain R10.2 Routine medical exam Z00.00 Dysuria R30.0 Obesity (BMI 30.0-34.9) E66.9 Left ureteral stone N20.1 Medical History Medical History Comments:: Pt states she seems to have a hard time getting over it states the last spinal didn't work Surgical History Surgical History (Updated 04/04/22 @ 06:59 by Sangeetha Forrest RN) History of appendectomy History of appendectomy Tobacco Smoking/Tobacco Use Status: Former Tobacco Use Alcohol Alcohol Intake: current Alcohol intake frequency: holidays/special occasions only Substance Use Substance use: Never Substance use type: does not use Vital Signs and Lab Results Vital Signs Most Recent Vital Signs in EMR: Most Recent Vital Signs Temp Pulse Resp BP Pulse Ox 36.9 C 99 H 18 141/90 H 98 04/04/22 06:16 04/04/22 06:16 04/04/22 06:16 04/04/22 06:16 04/04/22 06:16 Lab Results Blood Type / Crossmatch: No Data to Display Complete Blood Count: White Blood Count 10.42 10^3/uL (4.4-10.8) 03/26/22 10:07 Red Blood Count 4.93 10^6/uL (3.93-5.22) 03/26/22 10:07 Hemoglobin 13.8 g/dL (11.2-15.7) 03/26/22 10:07 Hematocrit 42.3 % (36.0-46.0) 03/26/22 10:07 Platelet Count 331 10^3/uL (130-400) 03/26/22 10:07 Complete Metabolic Panel: Sodium 136 mmol/L (136-145) 03/26/22 10:07 Potassium 3.6 mmol/L (3.5-5.1) 03/26/22 10:07 Chloride 101 mmol/L (98-107) 03/26/22 10:07 Carbon Dioxide 28.2 mmol/L (21.0-32.0) 03/26/22 10:07 BUN 13 mg/dL (7-18) 03/26/22 10:07 Creatinine 1.4 mg/dL (0.55-1.02) H 03/26/22 10:07 Est GFR (CKD-EPI 2020) 47.87 (mL/min/1.73m2) 03/26/22 10:07 Calcium 8.7 mg/dL (8.5-10.1) 03/26/22 10:07 Albumin 3.8 g/dL (3.4-5.0) 03/26/22 10:07 Glucose 100 mg/dL (74-106) 03/26/22 10:07 Liver Function Panel: Alanine Aminotransferase (ALT/SGPT) 12 U/L (14-59) L 03/26/22 1 0:07 Aspartate Amino Transf (AST/SGOT) 16 U/L (15-37) 03/26/22 10:07 Coagulation Panel: No Data to Display Cardiac Panel: No Data to Display Arterial Blood Gas: No Data to Display Venous Blood Gas: No Data to Display Pancreas Panel: No Data to Display Thyroid Panel: No Data to Display Infectious Disease: No Data to Display Blood Cultures: No Data to Display Toxicology Panel: No Data to Display Panel: No Data to Display Anesthesia Assessment and Plan Anesthesia History Personal History: No History of Anesthesia Complications Family History: No Family History of Anesthesia Complications Exercise Tolerance Exercise Tolerance: Metabolic Equivalents>4 Pertinent Negatives Pertinent Negatives: No Symptoms of GERD and No Major Cardiovascular Symptoms or Complaints Cardiac & Pulmonary Exam Cardiac Exam: Normal S1/S2 Heart Sounds Pulmonary Exam: Clear Bilateral Breath Sounds Implantable Cardiac Device Does patient have a Pacemaker or an ICD?: No Airway Exam Known Difficult Airway: No Mallampati Class: 1 Mouth Opening: Normal (> 3cm) Thyromental Distance: Greater than 3 cm Neck Range of Motion: Full ROM Neck Circumference: Normal Teeth Condition: Normal Dentition ASA Classification ASA Score: ASA 2 Emergency Case?: No NPO Status NPO Status: NPO Clears >2 hours, Solids >8 hours Status Status: Negative HCG Anesthesia Plan Resuscitation Status: Full Code Anesthesia Technique: General Anesthesia Airway Planned: Natural Airway Monitors Used: Standard Monitors
[2022-04-04] MEDS: Lactated Ringers 1,000 ML 80 ML IV (07:20)
[2022-04-04] MEDS: CIPROFLOXACIN 400 MG/200 ML BAG 200 MG IVPB (07:23)
[2022-04-04] MEDS: Lidocaine 2% Jelly 6 ML SYR (07:53)
[2022-04-04] MEDS: Omnipaque 300 MG/ML 50 ML BTL (08:22)
--- NOTE | 2022-04-04 08:32 | DI.RAD_ITS ---
Exam(s) XR RETROGRADE IN OR EXAM: XR RETROGRADE IN OR CLINICAL HISTORY: Left ureteral stone. TECHNIQUE: Fluoroscopy was provided for the referring physician for guidance with performing retrogr precious procedure. COMPARISON: No exams were available for comparison FINDINGS: Please see procedure note for details. Fluoro time: 29.7 seconds RADIATION DOSE DELIVERED: antoine Eden=6.54 mGy
--- NOTE | 2022-04-04 08:37 | W.PM.DSUDISC ---
Date of service: 04/04/22 Time of Service: 08:42 Discharge Plan Disposition Patient Disposition: HOME Condition: Good Discharge Details Reason For Visit: ureteroscopy Attending Provider: Alexey Cruz Primary Care Provider: Adelina Vasquez Home Meds and New Rx's Prescriptions: Continued tamsulosin 0.4 mg capsule 0.4 mg PO QHS 7 Days Qty: 7 0RF Rx Instructions: Take one tablet at bedtime No Action Allergy Relief Tablets PO PRN albuterol sulfate [Proventil HFA] 90 mcg/actuation HFA aerosol inhaler 1 - 2 puff Inhalation Q4H PRN Qty: 1 6RF Rx Instructions: Dispense brand that is covered please. Brand name or generic. multivitamin [Daily Multi-Vitamin] 1 EACH tablet 1 ea PO DAILY ketorolac [Toradol] 10 mg Tablet 10 mg TID PRN Discharge Instructions Additional Instructions: folowup 1 to 2 weeks for cystoscopy and stent removal in office no need to strain urine Activity:: Activity as Tolerated Shower/Bathe:: 24 hours Activity:: Activity as Tolerated Equipment/Supplies:: No Equipment Needed DS: Diagnosis Discharge Diagnosis (1) Left ureteral stone: Status: Acute
--- NOTE | 2022-04-04 08:44 | ROE_ITS ---
Date of service: 04/04/22 Time of Service: 08:44 Operative Note Operative Note DATE OF PROCEDURE: 04/04/22 PRE-OP DIAGNOSIS: Left ureteral stone Left renal stone PROCEDURE: Cystoscopy, left retrograde pyelogram, left flexible ureteroscopy, holmium laser lithotripsy of stone, extraction of stone fragments, placement of left ureteral stent SURGEON: Alexey Cruz ANESTHESIA TYPE: Local By Surgeon and General LMA/ETT Refer to Anesthesia Record ESTIMATED BLOOD LOSS: 10 PATHOLOGY: other (stone fragments for chemical analysis) Implants: 4.8 [place] by 22 to 30 cm left ureteral stent Indications: This is a 41-year-old woman who presented to the emergency department last week with left flank pain, nausea and vomiting. She was found to have a left proximal ureteral stone. The stone measured 7 mm and was causing hydronephrosis. She had no signs of sepsis. She presents now for stone manipulation. Findings: Left proximal ureteral stone Left lower pole kidney stone Procedure Description: Patient was given preoperative IV antibiotics. She was brought to the operating room on 04/04/2022. After successful induction of general anesthesia, she was placed in the dorsal lithotomy position. Her genitalia was prepped and draped. 2% Xylocaine jelly was instilled into the urethra to act as a local anesthetic. 22 [place] rigid cystoscope was passed through the urethra into the bladder. The bladder was inspected with a 30 degree lens. Both ureteral orifices appeared no rmal with no blood coming from either side. No stones were seen in the bladder lumen. No papillary or nodular masses were identified. I then cannulated the left ureteral orifice with a 5 [place] access catheter. A retrograde pyelogram was obtained by injecting Omnipaque through the access catheter under fluoroscopic guidance. A filling defect in the left proximal ureter was identified. I was then able to pass a guidewire through the lumen of the access catheter and advanced the wire above the level of the stone. The dual-lumen catheter was then positioned and a second wire was placed. We chose one of the wires as a working wire and the other as a safety wire. I passed a ureteral access sheath over the working wire. I positioned the tip of the sheath in the mid ureter. The flexible ureteroscope was then advanced through the access sheath and up the ureter until the stone was visualized in the proximal ureter. The stone was then treated with a 365 ?m holmium laser fiber. We utilized dusting settings with a power of 200 and a rate of 8. Once the stone fragmented down to a more manageable sizes, I was able to grasp some of the stone fragments in a 0 tip stone basket. We extracted the stone pieces and sent them off for chemical analysis. Once the ureteral stone had been cleared, I passed the scope up to the kidney. I inspected each of the calyces and in one of the lower pole calyces, a stone was visualized. That stone was grasped in a 0 tip stone basket and removed in its entirety. At the completion of the procedure, no extravasation of contrast was found from the ureter. We placed a ureteral stent. We chose a 4.8 [place] variable length stent and advanced it over the safety wire. The proximal end was curled in the renal pelvis and the distal and was curled within the bladder. The positioning of the stent was confirmed both fluoroscopically and cystoscopically. No safety string was left on the wire. The patient will need to return to the office in 1 to 2 weeks for a local cystoscopy and stent removal.
[2022-04-04] MEDS: fentaNYL 100 MCG/2 ML VIAL IVP (09:31)
[2022-04-04] MEDS: Phenazopyridine 200 MG TAB PO (10:08)
--- NOTE | 2022-04-04 10:34 | W.ANESPOSTOP ---
Postoperative Evaluation Date, Time and Location Date Performed: 04/04/22 Time Performed: 10:34 Patient Location: Day Surgery Unit Vital Signs Most Recent Imported Vital Signs: Most Recent Vital Signs Temp Pulse Resp BP Pulse Ox 36.6 C 74 12 129/86 96 04/04/22 09:40 04/04/22 09:40 04/04/22 09:40 04/04/22 09:40 04/04/22 09:40 Pain Score Most Recent Pain Score: Most Recent Pain Score Pain Level 7 04/04/22 09:40 Assessment Mental Status: Awake (Alert & Oriented to Patient Baseline) Airway and Respiratory Function: Patent airway with normal (patient baseline) respiratory exam Cardiovascular Function: Hemodynamically Stable Hydration Status: Adequately Hydrated Nausea & Vomiting: No Nausea or Vomiting Pain: Pain is Moderate or Severe Postoperative Pain Management: Pain being addressed with medication and Other (Surgeon aware.) Peripheral Nerve Block: Patient did not receive a nerve block
[2022-04-09 21:58] LABS: Source: Left Ureter
== END 2022-04-04 11:05 | disposition home or self-care (01) ==
PROVIDERS: PCP Nurse Practitioner; Visit Provider Urology
PROC: (CPT 52356; principal; 2022-04-04 07:30)
DX: N20.1 Calculus of ureter (principal); J45.20 Mild intermittent asthma, uncomplicated; E78.5 Hyperlipidemia, unspecified
CPT/HCPCS: 52356; 74420; 82365; J0744; J1100; J1885; J2250; J2405; J3010; Q9967

== ENCOUNTER 2022-04-15 12:03 | Outpatient (CLI) | payer OTHER, SELFPAY ==
[2022-04-15 13:34] LABS: Magnesium 1.7 mg/dL (1.8-2.4); TSH (W/Ref FT4) 0.58 uIU/mL (0.36-3.74)
[2022-04-15 14:04] LABS: Vitamin D 25 Total 27.9 ng/mL (30-100)
[2022-04-15 22:41] LABS: Parathyroid Hormone,Intact 30 pg/mL (19-88)
== END 2022-04-15 12:04 | disposition home or self-care (01) ==
PROVIDERS: PCP Nurse Practitioner; Visit Provider Nurse Practitioner Gerontology
DX: N20.0 Calculus of kidney (principal)
CPT/HCPCS: 36415; 82306; 83735; 83970; 84443

== ENCOUNTER 2022-04-17 13:59 | Outpatient (REF) | payer OTHER, SELFPAY ==
[2022-04-17 11:54] LABS: Creatinine,Urine 45.71 mg/dL; Sodium, Urine 10 mmol/L
[2022-04-17 11:58] LABS: CLEAVED CELLS 26 mmol/24h (40-220); Creatinine,24hr Ur 1.19 g/24hr (0.60-1.80); Total Volume 2600 ml
[2022-04-18 09:41] LABS: Calcium Urine 6.5 mg/dL (See Note); Calcium Urine 24 hr 169 mg/24hrs (100-300); Timed Urine Volume 2600 mL
[2022-04-18 09:44] LABS: Magnesium 24hr Urine 59.8 mg/24hrs (12.0-192.0); Magnesium Random Urine 2.3 mg/dL (See Note); Timed Urine Volume 2600 mL
[2022-04-18 09:45] LABS: Timed Urine Volume 2600 mL; Uric Acid Urine 19.8 mg/dL (See Note); Uric Acid Urine 24hr 515 mg/24hrs (250-750)
[2022-04-19 10:51] LABS: Citrate Excretion, 24hr, U 1061 mg/24 h (314 - 1191); Urine Volume 2600 mL
[2022-04-19 13:42] LABS: Oxalate, U 0.23 mmol/24 h; Oxalate, U 20.2 mg/24 h (9.7 - 40.5); Urine Volume 2600 mL
== END 2022-04-17 14:00 | disposition home or self-care (01) ==
LOC: LBN 13:59
PROVIDERS: PCP Nurse Practitioner; Visit Provider Nurse Practitioner Gerontology
DX: N20.0 Calculus of kidney (principal)
CPT/HCPCS: 82507; 83735; 81050; 82340; 82570; 83945; 84300; 84560

== ENCOUNTER 2022-05-20 01:43 | Outpatient (CLI) | payer OTHER, SELFPAY ==
--- NOTE | 2022-05-20 07:45 | DI.US_ITS ---
Exam(s) US RENAL EXAM: US RENAL CLINICAL HISTORY: ? hydronephrosis after ureteroscopy,LT URETERAL STONE, N20.1 TECHNIQUE: Ultrasound of both kidneys performed using standard protocol. COMPARISON: US US RENAL from 09/05/[address] ABDOMEN PELVIS WO from 03/26/2022 FINDINGS: Review of recent CT scan 03/26/2022 revealed a significant size calculus at the left ureteropelvic ju nction with dilatation left collecting system above this level. There is a solitary remaining 2 mill imeter calculus in the lower pole calyx of the ipsilateral left kidney. Right kidney was unremarkabl e on that CT scan. No calculi seen in the urinary bladder at that time. RIGHT KIDNEY: Measures 9 cm in length. No cysts evident. Normal cortical thickness and corticomedullary differentia tion .No solid masses There is a 6 millimeter echogenic focus in the midpole cortex, possibly indicating in nonobstructive calculus at this level. LEFT KIDNEY: Measures 10 cm in length. No cysts evident. Normal cortical thickness and corticomedullary different iaion. No solids masses. Small echogenic foci in the lower pole calyx of the left kidney noted, larg est measuring 5 millimeters. Suspect that these may represent remnants of the calculus which was pre viously at the left UPJ and which may have been fractured by interval urologic procedure. There is n o hydronephrosis at this time. URINARY BLADDER: Prevoid volume is 346 cc Postvoid volume is 11 cc No evidence of bladder mass nor diverticuli. Ureterovesical jets: Both identified and appear symmetrical IMPRESSION: 1. Multiple small calculi noted in the lower pole the left kidney which I suspect are probably from recent urologic procedure on the larger calculus which was evident at the left ureteropelvic junction on the CT scan of the 03/26/22. 2. Possible nonobstructive 6 millimeter calculus in the lateral cortex of the right kidney. No hydr onephrosis on either side Both ureterovesical jets were identified in the urinary bladder. DATA REPOSITORY:
== END 2022-05-20 02:03 ==
LOC: DI 01:43
PROVIDERS: PCP Nurse Practitioner; Visit Provider Urology
DX: N20.2 Calculus of kidney with calculus of ureter (principal)
CPT/HCPCS: 76770